=== PATIENT | male | born 1950 | race Caucasian/White ===

== ENCOUNTER → 2016-09-02 | Outpatient (CLI) | payer BC, OTHER ==
[~2016-09-02] MED LIST: ASPI81TA28 PO; ATOR-24 PO; BTP80 PO; CYAN10005 PO; FINA5TAB4 PO; FLUT0.15 INH; GLUCTAB7 PO; HYDR2.5C37 TOP; IBUP1TAB55 PO; ISOS60TA25 PO; LORA-741 PO; LPT40 PO; LSN40 PO; MDRDP21 PO; MELA1TAB5 PO; MULT-506 PO; NRN100 PO; OMEP20CA9 PO; PRAMCRE2 TOP; SOTA80TA PO; SPR25 PO; TAMS0.4C38 PO; TRAM-10 PO; ULT/50 PO; WARF-281 PO; WARF5TAB7 PO; ZLF/50 PO
== END | disposition home or self-care (01) ==
LOC: C.RDSM 08:00
PROVIDERS: ATTEND Physical Medicine & Rehabilitation Sports Medicine
DX: M25.521 Pain in right elbow (principal)

== ENCOUNTER 2016-10-30 19:11 | Emergency (ER) | payer BC, OTHER ==
[~2016-10-30] VITALS: Ht 185.4 cm; Wt 125.3 kg
[~2016-10-30 19:11] MED LIST changes: -ATOR-24 PO; -CYAN10005 PO; -GLUCTAB7 PO; -HYDR2.5C37 TOP; -IBUP1TAB55 PO; -MDRDP21 PO; -MULT-506 PO; -SOTA80TA PO; -TRAM-10 PO; -WARF5TAB7 PO
[2016-10-30 19:15] VITALS: TEMP 36.5; Ht 185.4 cm; Wt 125.3 kg
--- NOTE | 2016-10-30 20:24 | DIAGNOSTIC IMAGING REPORT ---
LEFT KNEE 3 VIEWS CLINICAL HISTORY: left, pain and locking pain COMPARISON: None. DISCUSSION: Moderate degenerative change all major joint compartments. Chondrocalcinosis. No acute bony abnormality. No significant joint effusion. There is no evidence for soft tissue swelling. IMPRESSION: Moderate degenerative change. Chondrocalcinosis. No acute process. Electronically signed by: Tomy Garcia M.D. 10/30/2016 8:23 PM Dictated Date/Time: 10/30/2016 8:22 PM
[2016-10-30] MEDS ORDERED: MDRDP21 PO (20:49)
[2016-10-30] MEDS ORDERED: TRAM-10 PO (21:09)
--- NOTE | 2016-10-30 21:10 | EMERGENCY ROOM VISIT NOTE ---
ED Visit Note First contact with patient: 19:34 CHIEF COMPLAINT: Left knee pain and locking today HISTORY OF PRESENT ILLNESS: Patient is a 66-year-old white male who presents the emergency department for evaluation of left knee pain that started this morning. He has a remote history of a knee arthroscopy, he is not sure which knee. He states that he fell landing on the flexed knee while walking his dog about 4 days ago, but did not note any left knee discomfort. Today, he has noted some discomfort in the anterior aspect of the knee, and notes a locking sensation particularly when he tries to rotate or turn. He applied a neoprene sleeve, and applied ice to the knee. He is able to bear weight, but it is slightly painful. 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 He is chronically anticoagulated on warfarin for a history of atrial fibrillation/ atrial flutter and actually has a cardioversion scheduled for the . REVIEW OF SYSTEMS: Review of systems as per HPI. All other systems reviewed were negative. 10 systems reviewed. PMH: Electronic medical records are reviewed and summarized as above/below. See Problem List. SOCIAL HISTORY: Patient lives at home. Employed. He is not a smoker. PHYSICAL EXAM: Vital Signs: Reviewed Nurse's notes. MENTAL STATUS: Patient is a pleasant 66-year-old white male who is awake and alert and in no acute distress laying on the gurney. KNEE: Examination of the left knee shows slight prepatellar soft tissue swelling. No ecchymosis, abrasions or outward signs of trauma. No knee joint effusion is palpable. He has slight discomfort to palpation over the patella and over the patellar tendon. No lateral joint line discomfort, pain over the medial joint line. He has slight crepitus with range of motion, but flexion and extension are full. No gross ligamentous instability is appreciated. The patient walks with an antalgic gait. EMERGENCY DEPARTMENT COURSE: X-ray of the left knee notes moderate degenerative changes and chondrocalcinosis. X-ray findings were reviewed with the patient. Conservative care measures were discussed. He is established with [facility]. He has used tramadol in the past and was encouraged to use this. NSAIDs were discussed, but I advised he should use these sparingly due to his warfarin therapy. He questions whether he could he received a cortisone injection here in the emergency department. I discussed that this would be better performed under the by orthopedic surgery to minimize risks of adverse outcome or complications. He expressed understanding of this. Differential diagnoses include fracture, sprain, contusion, meniscal tear, ligamentous injury , exacerbation of chronic DJD, among others. The patient was given a tramadol home pack and a small prescription. He declined a knee immobilizer. LEFT KNEE 3 VIEWS CLINICAL HISTORY: left, pain and locking pain COMPARISON: None. DISCUSSION: Moderate degenerative change all major joint compartments. Chondrocalcinosis. No acute bony abnormality. No significant joint effusion. There is no evidence for soft tissue swelling. IMPRESSION: Moderate degenerative change. Chondrocalcinosis. No acute process. Problem List Medical Problems: (1) Anxiety Status: Chronic (2) Atrial fibrillation Status: Chronic (3) CAD (coronary artery disease) Status: Chronic (4) Depression Status: Chronic (5) Diabetes mellitus type II, controlled Status: Chronic (6) Dyslipidemia Status: Chronic (7) GERD (gastroesophageal reflux disease) Status: Chronic (8) HTN (hypertension) Status: Chronic Surgical Problems: (1) H/O cataract removal with insertion of prosthetic lens Status: Resolved (2) H/O hernia repair Status: Resolved (3) S/P left knee arthroscopy Status: Resolved (4) S/P nasal septoplasty Status: Resolved Current/Historical Medications Scheduled Aspirin (Aspirin Ec), 81 MG PO DAILY Atorvastatin (Atorvastatin Calcium), 40 MG PO QPM Finasteride (Proscar), 5 MG PO DAILY Fluticasone Propionate (Nasal) (Flonase Allergy Relief), 2 SPRAYS INH DAILY Isosorbide Mononitrate Ext Rel (Imdur Ext Rel), 60 MG PO QPM Lisinopril (Lisinopril), 40 MG PO DAILY Methylprednisolone (Methylprednisolone Dose P), 1 DOSE PO DIRECTED Omeprazole (Prilosec), 20 MG PO QPM Agglssawn-Anmrlgvdonrip-Pqugee (Preparation H), 1 APPLN TOP UD Sertraline HCl (Sertraline HCl), 50 MG PO DAILY Sotalol HCl (Sotalol HCl), 80 MG PO BID Spironolactone (Spironolactone), 50 MG PO DAILY Tamsulosin Hcl (Flomax), 1 CAP PO DAILY Warfarin Sodium (Warfarin Sodium), 10 MG PO 5XWK Warfarin Sodium (Warfarin Sodium), 15 MG PO DIRECTED Scheduled PRN Lorazepam (Ativan), 0.5 MG PO HS PRN for Anxiety Melatonin (Kp Melatonin), 1 TAB PO HS PRN for Insomnia Tramadol (Ultram), 1-2 TAB PO Q4H PRN for Pain Tramadol Hcl (Ultram), 50 MG PO Q6HR PRN for Pain Allergies Coded Allergies: No Known Allergies (Unverified , 10/30/16) Vital Signs Date Time Temp Pulse Resp B/P Pulse Ox O2 Delivery O2 Flow Rate FiO2 10/30/16 21:22 76 20 145/80 99 10/30/16 19:15 36.5 130 20 108/78 95 Room Air Medications Administered Medications (Trade) Dose Ordered Sig/Pia Route Start Time Stop Time Status Last Admin Dose Admin Tramadol HCl (Ultram Home Pack) 1 homepack UD ONCE PO 10/30/16 21:15 10/30/16 21:16 DC 10/30/16 21:15 1 HOMEPACK Departure Information Impression Primary Impression: Left knee pain Prescriptions Tramadol (Ultram) 50 Mg Tab 1-2 TAB PO Q4H Y for Pain, #20 TAB For Initial Treatment Prov: Clara Pond PA 10/30/16 Referrals Deangelo Bashir MD (PCP) Patient Instructions My [facility] Additional Instructions Tramadol (Ultram) 50mg: Take 1-2 pills every four hours for breakthrough pain. Avoid alcohol, operating machinery or dangerous equipment, working on ladders or roofs, DRIVING, or situations where being under the influence may be dangerous. It is recommended to use an [id number] stool softener such as Colace, 100mg twice daily while taking this medication to avoid constipation. Acetaminophen(Tylenol) may be used for fever or pain. Use 1000mg every six hours as needed. Avoid using more than 3000mg in a 24 hour period. This medication can be taken if you need to drive, work, or perform activities which may be dangerous when taking narcotic pain medication. Ice compresses for 20 minutes at a time four times daily for 2-3 days. Rest and elevate your injury. Continue current medications. Return to the ER immediately for any numbness, tingling, severe pain, extreme swelling in the extremity or as needed. Call [facility] on Tuesday to arrange follow up for your injury. Problem Qualifiers Primary Impression: Left knee pain Chronicity: acute Qualified Codes: M25.562 - Pain in left knee
[2016-10-30] MEDS ORDERED: TRAMADOL HCL 50 MG HOME PACK PO ONE (21:15)
[2016-10-30 21:22] VITALS: BP 145/80; PULSE 76; O2SAT 99
[2016-11-02] MEDS ORDERED: IBUP1TAB55 PO ×2 (07:30)
[2016-11-02] MEDS ORDERED: HYDR2.5C37 TOP ×2 (07:30)
[2016-11-02] MEDS ORDERED: ATOR-24 PO ×2 (07:30)
[2017-03-09] MEDS ORDERED: GLUCTAB7 PO (12:26)
[2017-03-09] MEDS ORDERED: MULT-506 PO (12:26)
[2017-03-09] MEDS ORDERED: WARF5TAB7 PO (12:26)
[2017-03-09] MEDS ORDERED: SOTA80TA PO (12:26)
[2017-03-09] MEDS ORDERED: CYAN10005 PO (12:26)
[2017-03-17] MEDS ORDERED: TRAM-10 PO (11:18)
== END 2016-10-30 21:24 | disposition home or self-care (01) ==
LOC: C.EDB 19:12 → C.EDD 21:24
DX: M25.562 Pain in left knee (principal); F41.9 Anxiety disorder, unspecified; I48.91 Unspecified atrial fibrillation; I25.10 Atherosclerotic heart disease of native coronary artery without angina pectoris; E11.9 Type 2 diabetes mellitus without complications; E78.5 Hyperlipidemia, unspecified; K21.9 Gastro-esophageal reflux disease without esophagitis; I10 Essential (primary) hypertension; Z79.82 Long term (current) use of aspirin; Z79.01 Long term (current) use of anticoagulants

== ENCOUNTER → 2016-11-01 | Outpatient (CLI) | payer BC, OTHER ==
[~2016-11-01] MED LIST changes: +ATOR-24 PO; +CYAN10005 PO; +GLUCTAB7 PO; +HYDR2.5C37 TOP; +IBUP1TAB55 PO; +MDRDP21 PO; +MULT-506 PO; +SOTA80TA PO; +TRAM-10 PO; +WARF5TAB7 PO
== END | disposition home or self-care (01) ==
LOC: C.RDSM 11:25
PROVIDERS: ATTEND Physical Medicine & Rehabilitation Sports Medicine
DX: M25.562 Pain in left knee (principal)

== ENCOUNTER → 2016-11-02 | Day surgery (SDC) | payer BC, OTHER ==
[~2016-11-02] VITALS: Ht 185.4 cm; Wt 125.0 kg
[2016-11-02] VITALS (8 sets, daily range): BP systolic 92–126; BP diastolic 69–95; PULSE 62–122; TEMP 36.4; O2SAT 93–97; Ht 185.4 cm; Wt 125.0 kg
[~2016-11-02] MED LIST changes: +PROPOFOL IV EMULSION 10 MG/ML 20 ML VIAL IV ONE
--- NOTE | 2016-11-02 07:25 | History & Physical Bridge Note ---
H&P Re-Evaluation Bridge Note: I have examined the patient, reviewed the History & Physical recently performed by Marcus Alonzo PA-C of our practice and in the interval since the performance of the History & Physical I have noted the following changes of clinical significance: No changes noted. Recent INR levels were reviewed and were at goal.
--- NOTE | 2016-11-02 07:44 | Anesthesiology Progress Note ---
Anesthesia Post Op Note Date & Time Nov 02, 2016 at 07:44 Vital Signs Pain Intensity: 0 Vital Signs Past 12 Hours Date Time Temp Pulse Resp B/P Pulse Ox O2 Delivery O2 Flow Rate FiO2 11/02/16 07:34 115 16 115/92 97 Nasal Cannula 6 11/02/16 07:18 36.4 122 16 126/95 93 Room Air Notes Mental Status: alert / awake / arousable, participated in evaluation Pt Amnestic to Procedure: Yes Nausea / Vomiting: adequately controlled Pain: adequately controlled Airway Patency, RR, SpO2: stable & adequate BP & HR: stable & adequate Hydration State: stable & adequate Anesthetic Complications: no major complications apparent
--- NOTE | 2016-11-02 07:53 | Cardiology Procedure Brief Nt ---
Preliminary Cardiology Note Procedure Date Nov 02, 2016. Pre-Procedure Diagnosis Symptomatic atrial fibrillation Post-Procedure Diagnosis successful conversion to SB Procedure(s) Performed [facility] Archives Technician Justine Chirinos DO Associate Professor Of Literacy(s) not applicable Estimated Blood Loss none Preliminary Findings Patient received one dose of 200 J of biphasic synchronized energy with successful reversion to SB. Recommendations Continue home dose of sotalol and coumadin. Specimens none Anesthesia propofol 90 mg Complication(s) None Disposition Recovery in cardiac laborer construction or leak gang suite.
--- NOTE | 2016-11-02 07:59 | Discharge Instructions ---
Discharge Instructions Procedure Procedure Date: Nov 02, 2016. Reason for Visit: symptomatic atrial fibrillation, outpatient cardioversion Discharge Discharge Date: Nov 02, 2016. Discharge Diagnosis: successful conversion to sinus rhythm. Last Recorded Wt (Kilograms): 125 Anesthesia Post Anesthesia Instructions: If you have had General Anesthesia or IV Sedation: * Do not drive today. * Resume driving when surgeon permits. * Do not make important decisions or sign legal documents today. * For nausea and vomiting use only clear liquids such as: tea, soda, bouillon until nausea subsides, then gradually increase diet as tolerated. * If you have any concerns or questions, call your surgeon's office. If physician is unavailable and it is an emergency, call 911 or go to the nearest emergency room. Instructions Activity Recommendations: limitations as noted below Return to School/Work: with the following limitations Recommended Home Diet: resume previous diet Allergies: Coded Allergies: No Known Allergies (Unverified , 10/30/16) Follow Up Additional Instructions: ACTIVITY RECOMMENDATIONS: Resume activities as tolerated with no limitations unless specified. _x_ No lifting over _10 _ pounds for 24 hours. _x_ Do not engage in vigorous exercise, sexual activity, or sports for 24 hours. _x_ Do not drive or operate any motorized equipment for 24 hours. _x_ You may return to work/school tomorrow. SPECIAL CARE: If you experience coughing up or vomiting of blood, contact _Dr Chirinos, [phone] Follow-up with: follow up with Dr Chirinos and coumadin clinic [facility] Recommendations: Call your doctor if: * Temperature above 101 degrees * Pain not relieved by pain medicine ordered * There is increased drainage or redness from any incision * You have any unanswered questions or concerns. Your Doctors Instructions noted above were prepared by provider Jerman Chirinos. Patient Signature Section: Patient Instructions Signature Page Dariusz Larkin Patient (or Guardian) Signature/Date: I have read and understand the instructions given to me by my caregivers. Caregiver/RN/Doctor Signature/Date: The above-named patient and/or guardian has received patient instructions on this date. + Original Patient Signature Page (only) stays with chart. Please make copy for patient.
--- NOTE | 2016-11-02 08:47 | CARDIOVERSION ---
DATE OF OPERATION: 11/02/2016 PREPROCEDURE DIAGNOSIS: Symptomatic atrial fibrillation. POSTPROCEDURE DIAGNOSIS: Successful conversion to sinus bradycardia. PROCEDURE PERFORMED: Direct current cardioversion. ED CASE MANAGER: Jerman Chirinos DO DESCRIPTION OF PROCEDURE: After informed consent was obtained and time out was performed the patient was sedated with the assistance of Dr. Harrell of anesthesia receiving a total of 90 mg of propofol. The patient then received 1 dose of 200 joules of biphasic synchronized with successful conversion from atrial fibrillation 124 beats per minute to sinus bradycardia 55 beats per minute. The patient vital signs remained stable throughout the procedure. There were no complications. DISPOSITION: The patient is to recover in the cardiac catheterization suite and then return to home. RECOMMENDATIONS: He is to continue his prior home dose of sotalol and Coumadin. He is to follow with the anticoagulation clinic as previous scheduled. I attest to the content of the Intraoperative Record and any orders documented therein. Any exceptions are noted below. MTDD
--- NOTE | 2016-11-04 11:58 | CARDIOVERSION ---
DATE OF OPERATION: 11/02/2016 DIRECT CURRENT CARDIOVERSION NOTE PREPROCEDURE DIAGNOSIS: Symptomatic atrial fibrillation. POST PROCEDURE DIAGNOSIS: Successful conversion to sinus bradycardia. PROCEDURE PERFORMED: Direct current cardioversion. OUTBOUND SALES PROFESSIONAL: Jerman Chirinos D.O. ASSISTANTS: Not applicable. DESCRIPTION OF PROCEDURE: After informed consent was obtained and a time out was performed, the patient was sedated with the assistance of Dr. Harrell of anesthesia receiving a total of 200 joules of biphasic synchronized energy with successful conversion to sinus bradycardia. RECOMMENDATIONS: The patient is to continue his home dose of sotalol and Coumadin. ANESTHESIA: Propofol 90 mg IV. COMPLICATIONS: None. DISPOSITION: The patient is to recover in the cardiac catheterization laboratory suite and then be discharged to home with outpatient followup planned with our office as well as the Coumadin Clinic at [facility]. I attest to the content of the Intraoperative Record and any orders documented therein. Any exceptions are noted below. [email or web address]
== END | disposition home or self-care (01) ==
LOC: C.CATH 06:19
PROVIDERS: ATTEND Specialist
DX: I48.91 Unspecified atrial fibrillation (principal); I25.10 Atherosclerotic heart disease of native coronary artery without angina pectoris; E78.5 Hyperlipidemia, unspecified; E11.42 Type 2 diabetes mellitus with diabetic polyneuropathy; G47.30 Sleep apnea, unspecified; K21.9 Gastro-esophageal reflux disease without esophagitis; F41.8 Other specified anxiety disorders; E03.9 Hypothyroidism, unspecified; E66.9 Obesity, unspecified; Z79.01 Long term (current) use of anticoagulants; Z83.3 Family history of diabetes mellitus; Z82.49 Family history of ischemic heart disease and other diseases of the circulatory system; Z79.899 Other long term (current) drug therapy

== ENCOUNTER → 2017-03-08 | Outpatient (CLI) | payer BC, OTHER ==
[~2017-03-08] MED LIST changes: -LPT40 PO; -MDRDP21 PO; -NRN100 PO; -PROPOFOL IV EMULSION 10 MG/ML 20 ML VIAL IV ONE
== END | disposition home or self-care (01) ==
LOC: C.RDSM 12:55
PROVIDERS: ATTEND Physical Medicine & Rehabilitation Sports Medicine
DX: G56.01 Carpal tunnel syndrome, right upper limb (principal)

== ENCOUNTER → 2017-03-17 | Day surgery (SDC) | payer BC, OTHER ==
[2017-03-09 12:29] VITALS: Ht 185.4 cm; Wt 127.3 kg
[~2017-03-17] VITALS: Ht 185.4 cm; Wt 127.3 kg
[~2017-03-17] MED LIST changes: +ATROPINE SULFATE 0.1 MG/ML 5ML SYR IV PRN; -BTP80 PO; +BUPIVACAINE/EPINEPHRINE 0.5% MPF 1:200,000 10 ML VIAL ONE; +CEFAZOLIN 3000 MG/65 ML D5W IV SCH; +EpHEDrine SULFATE INJ 50 MG/ML AMP IV PRN; +FENTANYL CITRATE INJ 50 MCG/1 ML 2 ML VIAL ONE; +HYDROCODONE/ACETAMOPHEN 5/325MG TAB PO PRN; +LACTATED RINGER'S 1000ML 1,000 ML IV SCH; +LIDOCAINE HCL 2% 2 ML VIAL (20MG/ML) ONE; +LIDOCAINE/EPINEPHRINE 1% INJ 50 ML VIAL ONE; +MIDAZOLAM HCL 1 MG/ML 2ML VIAL ONE; +ONDANSETRON INJ 2 MG/ML 2 ML VIAL IV PRN; +ONDANSETRON INJ 2 MG/ML 2 ML VIAL ONE; +PROPOFOL IV EMULSION 10 MG/ML 20 ML VIAL IV ONE; +SODIUM CHLORIDE 0.9% 1000ML 1,000 ML IV SCH; +TRAMADOL HCL 50 MG TAB PO PRN
[2017-03-17 09:27] LABS: PROTHROMBIN TIME (PATIENT) 11.1 SECONDS (9.0-12.0)
--- NOTE | 2017-03-17 09:32 | History & Physical Bridge Note ---
H&P Re-Evaluation Bridge Note: I have examined the patient, reviewed the History & Physical and in the interval since the performance of the History & Physical I have noted the following changes of clinical significance: No changes noted
[2017-03-17 11:20] VITALS: TEMP 36.4
--- NOTE | 2017-03-17 11:24 | [facility] Operative Report ---
Operative Report Operative Date Mar 17, 2017. Pre-Operative Diagnosis Right Carpal Tunnel Syndrome, Right Middle Trigger Finger Post-Operative Diagnosis Same Procedure(s) Performed Right Carpal Tunnel Release And Middle Finger Trigger Release Surgeon Dr. Sage Figueredo Balance Truer Surgeon(s) Cate Rivas PA-C Estimated Blood Loss 0 Findings Right CTS, Right middle finger trigger Specimens None Drains NOne Anesthesia IV Sedation with local anesthesia Complication(s) None Disposition Recovery Room / PACU (stable) Indications Patient is a 66 year old male with complaints of right hand paresthesias and right locking of middle finger. Failed conservative treatment. X-rays and EMG/ NCS obtained. Found to have no bony abnormality. EMG found median nerve entrapment. Surgical intervention discussed, he agreed to proceed. Risks/ complications discussed, informed consent obtained. Description of Procedure Patient was taken to the operating room, given IV sedation with local anesthetic. Time out performed. He was given IV Ancef for surgical prophylaxis. He was prepped and draped in routine sterile fashion. I was present the entire case, please see Dr. Figueredo's operative report for further detail. Patient was awakened and taken to the recovery room in stable condition. I attest to the content of the Intraoperative Record and any orders documented therein. Any exceptions are noted below.
--- NOTE | 2017-03-17 11:26 | Discharge Instructions-SurgCtr ---
Discharge Instructions Date of Service Mar 17, 2017. Visit Reason for Visit: Right Cts, Right Middle Trigger Finger Discharge Discharge Diagnosis / Problem: right carpal tunnel syndrome, right middle finger trigger digit Discharge Goals Goal(s): Decrease discomfort, Improve function, Increase independence Medications Stopped Medications Name(s): COUMADIN STOPPED ON TUESDAY Restart Stopped Medication(s): Resume regular Coumadin dose this evening at your regularly scheduled time. Activity Recommendations Activity Limitations: per Instructions/Follow-up section Anesthesia . Post Anesthesia Instructions: If you have had General Anesthesia or IV Sedation: * Do not drive today. * Resume driving when surgeon permits. * Do not make important decisions or sign legal documents today. * Call surgeon for: 1. Temperature elevations greater than 101 degrees F. 2. Uncontrollable pain. 3. Excessive bleeding. 4. Persistent nausea and vomiting. 5. Medication intolerance (nausea, vomiting or rash). * For nausea and vomiting use only clear liquids such as: tea, soda, bouillon until nausea subsides, then gradually increase diet as tolerated. * If you have any concerns or questions, call your surgeon's office. If physician is unavailable and it is an emergency, call 911 or go to the nearest emergency room. . Instructions / Follow-Up Instructions / Follow-Up The following are instructions to follow after minor hand surgery. ACTIVITY RECOMMENDATIONS: * Minimize activity until your first visit after surgery. * No excessive walking, jogging, sports or laboring. * Return to activity is individualized. Most patients are able to return to everyday activities within 2 weeks. * Return to sports or intensive labor usually occurs at 1-2 months. * DRIVING: Driving may be resumed when you feel you have adequate pain control and use of the hand. * BATHING: You may shower or sponge-bathe immediately after surgery. The dressing will need to be covered with a plastic bag or plastic wrap until the dressing is changed on the fourth or fifth day after surgery. Once the dressing has been changed on the fourth or fifth day after surgery, you may shower and get the incision wet. * Wash with regular soap and water. * Do not bathe (submerge the incision), soak, swim or use a hot tub until the incision is completely healed over with normal skin and the doctor has given the OK to proceed. * There is no need to apply any ointments, powders or salves to your incision. * Do not apply alcohol or hydrogen peroxide directly to the incision. Diluted peroxide (50:50 mixture with sterile saline) may be used to clean dried blood from around the incision area. WORK/SCHOOL: * You may return to sedentary work or school when you are feeling comfortable. This is usually 3-7 days after surgery. * Expect increased discomfort with increased activity. Continue to elevate and ice the hand as much as possible. DIET: * Resume previous diet. MEDICATIONS: * You will have a prescription for pain medication and an anti-inflammatory medication after surgery. Use the pain pills for severe pain and the anti-inflammatory for less severe pain. * Once the pain pills have run out, try to use the anti-inflammatory. If this is not effective then contact the office for assistance. * The pain medication may cause nausea, constipation and sleepiness. You should see how they affect you before driving or similar activity. * The anti-inflammatory may cause stomach upset and bleeding. If this occurs, let your doctor know immediately . * Some patients may need blood clot prevention. This can be done with either a pill or a simple shot. Your doctor will advise you on when to begin these medications and how to take them. * Do not take aspirin or other anti-inflammatory products (i.e. Advil or Aleve ) if taking blood thinner medication. * Take a stool softener like Colace or a stimulant like Senokot to prevent constipation. SPECIAL CARE INSTRUCTIONS: ICE: * Do not apply ice directly to the skin. * Use a thin dressing or stockinet between the skin and ice bag. The dressing in place after surgery will suffice. * Apply ice for 20-30 minutes and repeat every 2-4 hours. This is especially important for the first 3-7 days after surgery. * Once the pain improves, use ice as needed. ELEVATION: * Keep your hand elevated at or above the level of your heart as much as possible. * Expect some increased discomfort and swelling if you allow your hand to hang down for any length of time. DRESSING: * Your dressing will be changed 4-5 days after surgery by the physical therapist or physician's human resource assistant. Leave your dressing intact until this time. * You may then change your dressing daily with clean dry gauze or Band-aids and a soft wrap or stockinet. * Always wash your hands prior to touching the incision area. * Once the stitches are removed, you may leave the wound open to air or cover with a thin bandage. * There is no need to apply any ointments, powders or salves to your incision. * Expect some bloody drainage for the first few days after surgery. * Leave the tape strips in place (if present) for 5-7 days. * The initial dressing after surgery may become soaked with blood or fluid which is normal. You may reinforce your dressing with clean, dry gauze as needed. BRACE: * Bracing is generally not needed after routine hand surgery. THERAPY: * Physical therapy may be prescribed after your surgery. * For carpal tunnel and trigger digit surgery you may begin moving your fingers and wrist immediately after surgery as tolerated. * Be careful to not overuse. * Once the sutures are removed, further range of motion exercises can be performed. * Hand incisions may be very sensitive for a few months after surgery so avoid excessive pressure on the incision. If necessary, use a padded weightlifters' glove. * You may massage the incision with skin cream to make it less sensitive and reduce scarring. * Hand strength usually returns with normal use. * If needed, squeezing a soft sponge or Play-dough may help. * Your doctor will recommend physical therapy if necessary. PROBLEMS/QUESTIONS: * If you have any problems such as severe pain, numbness, tingling or high fevers or if you have any questions, please contact the office at [phone]. * It is not uncommon to have some numbness and tingling after the surgery especially if you have had a nerve block done. This should gradually improve over the first 1- 2 days. If this persists longer or worsens then contact the office. FOLLOW UP VISIT: * If not already scheduled, please call the office at to schedule follow-up appointments for approximately 10 days, 6 weeks and 3 months after surgery. * You have a follow-up appointment or dressing change at [facility] physical therapy on 03/21/17 at 10:00 a.m. * You have a follow-up appointment with Dr. Figueredo on 03/30/17 at 1:00 p.m. Diet Recommendations Home Diet: no limitations, resume previous diet Pending Studies Studies pending at discharge: no Medical Emergencies . Who to Call and When: Medical Emergencies: If at any time you feel your situation is an emergency, please call 911 immediately. . Non-Emergent Contact Non-Emergency issues call your: Surgeon Call Non-Emergent contact if: temperature is above 101, your pain is not controlled, wound has increased drainage, wound has increased redness, wound has increased pain, you have any medication questions . . "Provider Documentation" section prepared by Cate Rivas. . [place] Drug Monitoring Program Search Results: patient reviewed within database, no issues identified
--- NOTE | 2017-03-17 11:29 | [facility] Operative Report ---
Operative Report Operative Date Mar 17, 2017. Pre-Operative Diagnosis Right Carpal Tunnel Syndrome, Right Middle Trigger Finger Post-Operative Diagnosis Same Procedure(s) Performed Right Carpal Tunnel Release And Middle Finger Trigger Release Surgeon Dr. Efraín Figueredo Hand Plate Stacker Surgeon(s) Justine Rivas PA-C Estimated Blood Loss 0 Findings Clicking of right middle finger trigger digit with tenosynovitis Specimens None Drains none Anesthesia local with IV sedation Complication(s) None Disposition Recovery Room / PACU Implants None Indications Patient's a 66-year-old male with a right middle finger trigger digit. He also has some stiffness and pain of the involved digit and surrounding area. He has clinical and electrodiagnostic findings consistent with carpal tunnel. He is taken to surgery for addressing the after mentioned problems. The patient is on long-term anticoagulation for atrial fibrillation. 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 The Coumadin was stopped preoperatively. The INR today is 1.0. Coumadin will be restarted postoperatively. He will follow up with the Coumadin clinic. Description of Procedure Informed consent was obtained. The patient was identified as Dariusz rodriguez. He identified the operative site as the right hand middle finger and the right carpal tunnel. I marked the separately with my initials. Preoperative surgical timeout was performed. He was taken to the operating room positioned supine on the stretcher. A preoperative dose of IV antibiotics was given. A tourniquet was applied to the right upper arm. The extremity was prepped and draped in the usual sterile fashion. DVT prophylaxis is not indicated. The examination showed clicking with flexion of the middle finger. He had a trace loss of middle finger extension which I gently manipulated into full extension. 1% lidocaine and half percent Marcaine both containing epinephrine were injected into both areas for a local anesthetic. Intravenous sedation was given. The limb was exsanguinated with the Esmarch. Tourniquet inflated to 225 mmHg. A transverse incision was made using the distal palmar crease on the long finger. Once dissection performed down in the midline until the tendon sheath was identified. The radial neurovascular bundle was identified and protected with a retractor. The tendon sheath was located slightly distal under the incision. I extended this in a zigzag fashion distally perpendicular to the original oblique incision. Again blunt dissection was utilized in the midline. The neurovascular bundle was identified and protected on the radial side. The tendon sheath was then more easily identified. The A1 carrie was then released under direct visualization. There was tenosynovitis noted in this area of the superficialis tendon which was also debrided. There were no cysts. There is no nodule the tendon. The clicking was completely eliminated. The wound was irrigated with sterile saline. The incision was then closed using 4- 0 nylon sutures. Attention was turned to the carpal tunnel where a longitudinal incision was made beginning at Aguirre's cardinal line. This incision and just short of the main distal transverse wrist crease. The incision was made in line the third webspace. Blunt dissection was performed down to subcutaneous tissues and superficial fascia. The transverse carpal ligament was identified. The distal extent was identified. The transverse carpal ligament was released up into the distal forearm fascia under direct visualization. A scalpel and tenotomy scissors were utilized. The transverse carpal ligament was noted to be very thick and also very tight. The tendons the tenosynovium were normal. There appeared to be some flattening of the median nerve but otherwise it was unremarkable. A good decompression was obtained both proximally and distally. The wound was irrigated and then closed with 4-0 nylon horizontal mattress stitches in an interrupted fashion. A soft sterile dressing was applied. The tourniquet was let down after approximately 25 minutes of inflation. The patient was awakened from anesthesia without difficulty. He was taken to the recovery room in stable condition. There were no specimens or complications. Counts are correct in the case. Blood loss was minimal. At the end of the operation spoke to his friend and informed him of my findings. Detailed postoperative instructions were given. He'll be rehabilitated according to the trigger finger and carpal tunnel protocol. He'll be in for physical therapy next week. I attest to the content of the Intraoperative Record and any orders documented therein. Any exceptions are noted below.
--- NOTE | 2017-03-17 11:40 | Anesthesia Progress Nt - [facility] ---
Anesthesia Post Op Note Date & Time Mar 17, 2017 at 11:40 Vital Signs Pain Intensity: 0 Vital Signs Past 12 Hours Date Time Temp Pulse Resp B/P (MAP) Pulse Ox O2 Delivery O2 Flow Rate FiO2 03/17/17 11:20 36.4 50 16 124/72 (89) 93 Room Air 03/17/17 08:56 36.9 49 22 166/99 (121) 95 Room Air Notes Mental Status: alert / awake / arousable, participated in evaluation Pt Amnestic to Procedure: Yes Nausea / Vomiting: adequately controlled Pain: adequately controlled Airway Patency, RR, SpO2: stable & adequate BP & HR: stable & adequate Hydration State: stable & adequate Anesthetic Complications: no major complications apparent
[2017-03-17 11:41] VITALS: BP 128/82; PULSE 50; O2SAT 97
== END | disposition home or self-care (01) ==
LOC: X.SURG 08:29
PROVIDERS: ATTEND Physical Medicine & Rehabilitation Sports Medicine
DX: G56.01 Carpal tunnel syndrome, right upper limb (principal); M65.331 Trigger finger, right middle finger; I48.91 Unspecified atrial fibrillation; I10 Essential (primary) hypertension; E78.00 Pure hypercholesterolemia, unspecified; E11.9 Type 2 diabetes mellitus without complications; G47.30 Sleep apnea, unspecified; K21.9 Gastro-esophageal reflux disease without esophagitis; F32.9 Major depressive disorder, single episode, unspecified; N40.0 Benign prostatic hyperplasia without lower urinary tract symptoms; E66.9 Obesity, unspecified; Z79.01 Long term (current) use of anticoagulants; Z79.899 Other long term (current) drug therapy

== ENCOUNTER → 2017-05-27 | Outpatient (CLI) | payer BC ==
[~2017-05-27] VITALS: Ht 185.4 cm; Wt 131.8 kg
[~2017-05-27] MED LIST changes: -ATROPINE SULFATE 0.1 MG/ML 5ML SYR IV PRN; -BUPIVACAINE/EPINEPHRINE 0.5% MPF 1:200,000 10 ML VIAL ONE; -CEFAZOLIN 3000 MG/65 ML D5W IV SCH; -EpHEDrine SULFATE INJ 50 MG/ML AMP IV PRN; -FENTANYL CITRATE INJ 50 MCG/1 ML 2 ML VIAL ONE; -HYDROCODONE/ACETAMOPHEN 5/325MG TAB PO PRN; -LACTATED RINGER'S 1000ML 1,000 ML IV SCH; -LIDOCAINE HCL 2% 2 ML VIAL (20MG/ML) ONE; -LIDOCAINE/EPINEPHRINE 1% INJ 50 ML VIAL ONE; -MIDAZOLAM HCL 1 MG/ML 2ML VIAL ONE; -ONDANSETRON INJ 2 MG/ML 2 ML VIAL IV PRN; -ONDANSETRON INJ 2 MG/ML 2 ML VIAL ONE; -PROPOFOL IV EMULSION 10 MG/ML 20 ML VIAL IV ONE; -SODIUM CHLORIDE 0.9% 1000ML 1,000 ML IV SCH; -TRAMADOL HCL 50 MG TAB PO PRN
[2017-05-27 15:12] VITALS: BP 126/80; PULSE 66; Ht 185.4 cm; Wt 131.8 kg
== END | disposition home or self-care (01) ==
LOC: C.NEUR 14:47
PROVIDERS: ATTEND Internal Medicine Pulmonary Disease
DX: G47.30 Sleep apnea, unspecified (principal)

== ENCOUNTER → 2017-06-08 | Outpatient (CLI) | payer BC ==
--- NOTE | 2017-06-13 08:56 | POLYSOMNOGRAPH REPORT ---
CLINICAL DATA: A 66-year-old male with BMI of 38.32 diagnosed with sleep apnea 10 years ago in [place]. He had a difficult time tolerating CPAP and only used it for 2 years. He is suffering from recurrent symptoms of poor sleep quality, frequent awakenings and daytime fatigue. He also has symptoms of depression. On the evening of 06/08/2017, a home sleep apnea test was performed using a Credible type 3 monitor. RECORDING RESULTS: Total recording time was 10 hours. The patient's monitoring time and estimated sleep time was 6.5 hours. RESPIRATORY DATA: At least moderate sleep apnea was documented. The DIMAS was 17.5. There were 35 obstructive apneic episodes and 78 hypopneic episodes recorded. The longest respiratory event was 52 seconds. OXIMETRY DATA: Nocturnal hypoxemia was seen. Oxygen desiree was 81%. Mean saturation was 91%. Time below 89% was 21 minutes. HEART RATE DATA: Heart rates ranged from 36-45 beats per minute. SNORING DATA: Snoring was recorded throughout the night. METROLOGY TECHNICIAN'S COMMENTS: The patient did not have any difficulty with testing. The thermistor did not work well throughout the test. It was unclear whether it was properly placed. At times, it worked well and at other times, it was questionable. It is the feeling of the hemodialysis technician that the patient has sleep apnea but the actual DIMAS may be different due to the inaccuracy of the thermistor. IMPRESSION: Moderate sleep apnea/hypopnea with an DIMAS of 17.5 with nocturnal hypoxemia. RECOMMENDATIONS: The patient may benefit from a repeat sleep study with CPAP or use of an oral appliance. JACEY
== END | disposition home or self-care (01) ==
LOC: C.NEUR 08:20
PROVIDERS: ATTEND Internal Medicine Pulmonary Disease
DX: G47.30 Sleep apnea, unspecified (principal)

== ENCOUNTER 2021-10-20 16:15 | Inpatient (IN) ==
[2021-10-20] MEDS ORDERED: dilTIAZem HCl 5 MG/ML 5 ML VIAL IV STA (16:51)
[2021-10-20] MEDS ORDERED: SODIUM CHLORIDE 0.9% 250 ML IV ONE (16:51)
--- NOTE | 2021-10-20 16:53 | Emergency Department Note ---
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 Patient states he has had some issues with generalized weakness, states he has felt somewhat short of breath over the past week since he had a cardioversion performed on October 13 for atrial fibrillation. 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 On arrival he is conversational, he is saturating well on room air, blood pressure is stable, he is noted to be tachycardic at about 120. ROS: - Cardio: Tachycardia *10 point review systems was conducted and is otherwise negative unless stated above *Outpatient medications and allergy history reviewed PE: General: Alert, NAD HEENT: Normocephalic, atraumatic Eyes: Extraocular eye movement is intact, no scleral erythema Pulmonary: Clear to auscultation bilaterally, no wheezing Cardio: Regular Rhythm, tachycardic rate GI: Abdomen is soft, nontender : No suprapubic tenderness MSK: No evidence of trauma or malformation of the extremities, no edema Skin: No evidence of rash Neuro: Alert, no focal deficits Psychiatric: Cooperative specification writer: - An order was placed for continuous cardiac monitoring - Patient was noted to be in Regular rhythm with rate of 119 EKG: Rate: 119 Rhythm: Atrial flutter with 2-1 block Intervals: Within normal limits ST changes: No ST elevation Time: 1639 Medical Decision Making: The patient is a 71-year-old gentleman who presented to the emergency department with tachycardia from his PCPs office. Patient is noted to be in atrial flutter with a 2-1 block on EKG, he is otherwise in no acute distress, saturating well on room air, blood pressure stable, he denies any chest pain. IV was established, lab work obtained, patient was placed on a anchor operator, he is maintained a regular appearing rhythm with a rate of 119, consistent with likely atrial flutter. Lab work is largely unremarkable, no critical electrolyte abnormalities are noted, BNP is slightly elevated, troponin is negative x1. I discussed the above findings with on-call cardiology, Dr. Butterfield, patient did not convert following diltiazem bolus of 10 mg in addition to continuous diltiazem drip, patient was also given 5 of metoprolol IV without any response. His blood pressure remained stable, he remained saturating well on room air. Dr. Butterfield recommended at this time admission to the hospitalist service and maintaining the patient on a diltiazem drip to see if he converts given that he is otherwise hemodynamically stable. He has had recent cardioversions in the past therefore this is thought to be less helpful at this time as he has had limited response to this. Patient is in agreement to the above plan, I discussed the case with the on-call hospitalist for [facility], Dr. Mariela Troncoso, and the patient was admitted to a telemetry bed for further care. Critical care time: 35 minutes -Management of tachyarrhythmia requiring IV rate control medication drip/diltiazem drip, discussion with other physicians, arrangement of admission, interpretation of diagnostic studies Diagnosis: 1.Atrial flutter With 2-1 AV block 2.Sensation of palpitations 3.weakness 4.Tachycardia Disposition: ADMIT Tomy Sandy DO Emergency Medicine Past Med/Surg History Medical History (Updated 10/20/21 @ 19:32 by Tomy Sandy DO) Arthritis Atrial fibrillation BPH (benign prostatic hyperplasia) Coronary artery disease Depression Diabetes mellitus, type 2 Elevated prostate specific antigen (PSA) GERD (gastroesophageal reflux disease) History of cardioversion X 1 *4 YEARS AGO Hyperlipidemia Hypertension Myocardial infarction SILENT *8 YEARS AGO Neuropathy LOLA. FEET Sleep apnea NO DEVICE Spinal stenosis Surgical History H/O hernia repair History of cardiac cath MULT.>NO STENTS (LAST ONE 20 YEARS AGO) History of carpal tunnel release RT History of colonoscopy History of tooth extraction Hx of cataract surgery RT/LEFT Hx of knee surgery Hx of nasal septoplasty Family History Mother Diabetes Cardiac disorder AMD (age related macular degeneration) Cancer Hypertension Father Diabetes Cardiac disorder Parkinson's disease Sister Rheumatoid arthritis Other No family history of adverse response to anesthesia Social History Smoking Status: Never smoker Second Hand Exposure: No; Hx Alcohol Use: Yes Preferred Language: Romanian Orthodontic Treatment Coordinator Required: No Beliefs That Will Affect Care: Faith Faith Beliefs: 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) marital status: Single Current Living Situation: Alone Feels Safe at Home: Yes Assistive Devices: Hearing Aid - Bilateral Allergies Allergies Allergy/AdvReac Type Severity Reaction Status Date / Time walnut Allergy Intermediate MOUTH Verified 10/20/21 18:50 BURNING Home Meds Home Medications Medication Instructions Recorded Confirmed atorvastatin 40 mg tablet 40 mg PO HS 03/06/20 10/20/21 finasteride 5 mg tablet 5 mg PO DAILY 03/06/20 10/20/21 isosorbide mononitrate 60 mg 60 mg PO DAILY 03/06/20 10/20/21 tablet,extended release 24 hr lisinopril 40 mg tablet 40 mg PO DAILY 03/06/20 10/20/21 omeprazole 20 mg capsule,delayed 20 mg PO HS 03/06/20 10/20/21 release sertraline 100 mg tablet 100 mg PO DAILY 03/06/20 10/20/21 sotalol 80 mg tablet See Rx Instructions .ROUTE .COMPLEX 03/06/20 10/20/21 spironolactone 25 mg tablet 25 mg PO DAILY 03/06/20 10/20/21 tamsulosin 0.4 mg capsule 0.4 mg PO DAILY 03/06/20 10/20/21 warfarin 10 mg tablet See Rx Instructions .ROUTE .COMPLEX 03/06/20 10/20/21 aspirin 81 mg tablet,delayed 81 mg PO DAILY 06/02/20 10/20/21 release cyanocobalamin (vitamin B-12) 3,000 mcg PO DAILY 06/02/20 10/20/21 1,000 mcg tablet (Vitamin B-12) fluticasone propionate 50 2 spray INTRANASAL DAILY PRN 06/02/20 10/20/21 mcg/actuation nasal spray,suspension multivitamin 1 tab PO DAILY 06/02/20 10/20/21 diphenhydramine 25 1 tab PO HS PRN 10/12/21 10/20/21 mg-acetaminophen 500 mg tablet (Tylenol PM Extra Strength) glucosamine-chondroitin 250 mg-200 2 tab PO DAILY 10/12/21 10/20/21 mg tablet (Osteo Bi-Flex) metformin 500 mg tablet 2,000 mg PO QPM 10/12/21 10/20/21 Results & Data (ED) Vital Signs Vital Signs - 24 hr 10/20/21 16:16 10/20/21 16:18 10/20/21 16:57 Pulse Rate 119 H 119 H Pulse Rate [Right Finger] 119 H Pulse Rhythm Regular Pulse Rhythm [Right Finger] Regular Pulse Strength [Right Finger] Normal Respiratory Rate 19 20 18 Respiratory Effort / Characteristics Non-Labored Spontaneous Respiratory Depth Normal Respiratory Pattern Blood Pressure 117/87 Blood Pressure [Right Arm] 118/95 Blood Pressure Mean 97 Blood Pressure Mean [Right Arm] 102 Blood Pressure Position Sitting Blood Pressure Position [Right Arm] Lying Pulse Oximetry 94 91 94 Oxygen Delivery Method Room Air Room Air Room Air Sepsis Recent Fever Within 48 Hours No Sepsis New/Unexplained Change in Mental Status No Sepsis Action Taken by Nursing No Action Required 10/20/21 17:30 10/20/21 17:52 10/20/21 19:00 Pulse Rate 120 H Pulse Rate [Right Finger] 124 H 118 H Pulse Rhythm Pulse Rhythm [Right Finger] Regular Irregular Pulse Strength [Right Finger] Normal Normal Respiratory Rate 18 18 Respiratory Effort / Characteristics Non-Labored Spontaneous Non-Labored Spontaneous Respiratory Depth Normal Normal Respiratory Pattern Regular Regular Blood Pressure 144/89 H Blood Pressure [Right Arm] 144/89 H 130/105 H Blood Pressure Mean Blood Pressure Mean [Right Arm] 107 113 Blood Pressure Position Blood Pressure Position [Right Arm] Lying Pulse Oximetry 94 97 Oxygen Delivery Method Room Air Room Air Sepsis Recent Fever Within 48 Hours Sepsis New/Unexplained Change in Mental Status Sepsis Action Taken by Nursing Laboratory Data Result diagrams: 10/20/21 17:24 10/20/21 17:24 Lab Results 10/20/21 10/20/21 10/20/21 Range/Units 17:24 17:24 17:24 WBC 8.91 (4.8-10.8) K/uL RBC 4.56 L (4.7-6.1) M/uL Hgb 13.6 L (14.0-18.0) g/dL Hct 40.8 L (42-52) % MCV 89.5 (80-100) fL MCH 29.8 (25-34) pg MCHC 33.3 (32-36) g/dL RDW Std Deviation 48.2 H (36.4-46.3) fL RDW Coeff of Ziyad 14.8 H (11.5-14.5) % Plt Count 201 (130-400) K/uL MPV 10.7 H (7.4-10.4) fL Immature Gran % (Auto) 0.1 % Neut % (Auto) 66.4 % Lymph % (Auto) 23.7 % Gladwin % (Auto) 8.2 % Eos % (Auto) 1.2 % Baso % (Auto) 0.4 % Neut # (Auto) 5.91 (1.4-6.5) K/uL Lymph # (Auto) 2.11 (1.2-3.4) K/uL Gladwin # (Auto) 0.73 H (0.11-0.59) K/uL Eos # (Auto) 0.11 (0-0.5) K/uL Baso # (Auto) 0.04 (0-0.2) K/uL Immature Gran # (Auto) 0.01 (0.00-0.02) K/uL PT 23.8 H (9.0-12.0) Seconds INR 2.3 H (0.9-1.1) APTT 30.8 (21.0-31.0) Seconds PTT Ratio 1.1 Sodium 138 (136-145) mmol/L Potassium 4.3 (3.5-5.1) mmol/L Chloride 108 H (98-107) mmol/L Carbon Dioxide 24 (21-32) mmol/L Anion Gap 6 (3-11) BUN 17 (6-23) mg/dl Creatinine 0.78 (0.6-1.4) mg/dl Est Cr Clr Drug Dosing 122.0 ml/min Est GFR ( Amer) 104.5 ml/min Est GFR (Non-Af Amer) 90.2 ml/min BUN/Creatinine Ratio 21.8 H (10-20) Glucose 118 H (70-99(Fasting)) mg/dl Calcium 8.9 (8.5-10.1) mg/dl Total Bilirubin 0.8 (0.2-1.0) mg/dl AST 21 (13-39) U/L ALT 26 (7-52) U/L Alkaline Phosphatase 70 (34-104) U/L Troponin I 0.04 (0-0.04) ng/ml B-Natriuretic Peptide (0-100) pg/ml Total Protein 6.4 (6.0-8.3) gm/dl Albumin 3.8 (3.4-5.0) gm/dl Globulin 2.6 (2.5-4.0) gm/dl Albumin/Globulin Ratio 1.5 (0.9-2) Lipase 52 (11-82) U/L SARS-CoV-2, RNA, NAAT (NEGATIVE) 10/20/21 10/20/21 Range/Units 17:24 18:58 WBC (4.8-10.8) K/uL RBC (4.7-6.1) M/uL Hgb (14.0-18.0) g/dL Hct (42-52) % MCV (80-100) fL MCH (25-34) pg MCHC (32-36) g/dL RDW Std Deviation (36.4-46.3) fL RDW Coeff of Ziyad (11.5-14.5) % Plt Count (130-400) K/uL MPV (7.4-10.4) fL Immature Gran % (Auto) % Neut % (Auto) % Lymph % (Auto) % Gladwin % (Auto) % Eos % (Auto) % Baso % (Auto) % Neut # (Auto) (1.4-6.5) K/uL Lymph # (Auto) (1.2-3.4) K/uL Gladwin # (Auto) (0.11-0.59) K/uL Eos # (Auto) (0-0.5) K/uL Baso # (Auto) (0-0.2) K/uL Immature Gran # (Auto) (0.00-0.02) K/uL PT (9.0-12.0) Seconds INR (0.9-1.1) APTT (21.0-31.0) Seconds PTT Ratio Sodium (136-145) mmol/L Potassium (3.5-5.1) mmol/L Chloride (98-107) mmol/L Carbon Dioxide (21-32) mmol/L Anion Gap (3-11) BUN (6-23) mg/dl Creatinine (0.6-1.4) mg/dl Est Cr Clr Drug Dosing ml/min Est GFR ( Amer) ml/min Est GFR (Non-Af Amer) ml/min BUN/Creatinine Ratio (10-20) Glucose (70-99(Fasting)) mg/dl Calcium (8.5-10.1) mg/dl Total Bilirubin (0.2-1.0) mg/dl AST (13-39) U/L ALT (7-52) U/L Alkaline Phosphatase (34-104) U/L Troponin I (0-0.04) ng/ml B-Natriuretic Peptide 545 H (0-100) pg/ml Total Protein (6.0-8.3) gm/dl Albumin (3.4-5.0) gm/dl Globulin (2.5-4.0) gm/dl Albumin/Globulin Ratio (0.9-2) Lipase (11-82) U/L SARS-CoV-2, RNA, NAAT NEGATIVE (NEGATIVE) Administered Medications Diltiazem HCl 125 mg/ Dextrose 125 mls @ 5 mls/hr IV .Q24H [facility]; Protocol Stop: 11/19/21 17:44 Last Admin: 10/20/21 17:52 Dose: 10 mg/hr, 10 mls/hr Documented by: [id number] Cosigned by: [id number] Discontinued Medications Diltiazem HCl (Diltiazem Hcl 5 Mg/Ml 5 Ml Vial) 10 mg IV NOW STA Stop: 10/20/21 16:52 Last Admin: 10/20/21 17:29 Dose: 10 mg Documented by: [id number] Cosigned by: [id number] Sodium Chloride (Nss) 250 mls @ 999 mls/hr IV .Q16M ONE Stop: 10/20/21 17:06 Last Admin: 10/20/21 17:34 Dose: 999 mls/hr Documented by: [id number] Metoprolol Tartrate (Metoprolol Tartrate 1 Mg/Ml Vial) 5 mg IV NOW STA; Protocol Stop: 10/20/21 17:41 Last Admin: 10/20/21 17:52 Dose: 5 mg Documented by: [id number] Imaging Data Radiologist's Impression: Chest X-Ray 10/20/21 16:40 XR chest 1V portable CLINICAL HISTORY: Chest Pain. COMPARISON STUDY: 03/24/2016 TECHNIQUE: 1 view of the chest FINDINGS: Single frontal view of the chest demonstrates the heart to be mildly enlarged which is probably accentuated by the decreased inspiratory effort. There is a decreased inspiratory effort with elevation of the hemidiaphragms and crowding of the bronchovascular markings at the lung bases and centrally. The lungs are clear of alveolar opacities. There is no evidence for pleural effusion. There is no evidence for vascular congestion. There is no acute osseous pathology. IMPRESSION: 1. There is a decreased inspiratory effort with otherwise no acute chest disease. ACT 112: Negative or not required by law. Electronically signed by: Kishore Riggs M.D. 10/20/2021 5:08 PM Discharge Plan Visit Data Chief Complaint: Cardiac Assessment Stated Complaint: AFIB, SWELLING AND FLUID BUILD UP, ABORMAL EKG ED Provider: Tomy Sandy Discharge Problem: Atrial flutter Forms Stand Alone Forms: My [facility] Prescriptions Prescriptions: No Action finasteride 5 mg tablet 5 mg PO DAILY RF: 0 omeprazole 20 mg capsule,delayed release(DR/EC) 20 mg PO HS RF: 0 tamsulosin 0.4 mg capsule 0.4 mg PO DAILY RF: 0 isosorbide mononitrate 60 mg tablet extended release 24 hr 60 mg PO DAILY RF: 0 spironolactone 25 mg tablet 25 mg PO DAILY RF: 0 warfarin 10 mg tablet See Rx Instructions .ROUTE .COMPLEX RF: 0 atorvastatin 40 mg tablet 40 mg PO HS RF: 0 lisinopril 40 mg tablet 40 mg PO DAILY RF: 0 sertraline 100 mg tablet 100 mg PO DAILY RF: 0 sotalol 80 mg tablet See Rx Instructions .ROUTE .COMPLEX RF: 0 multivitamin Tablet 1 tab PO DAILY RF: 0 cyanocobalamin (vitamin B-12) [Vitamin B-12] 1,000 mcg Tablet 3,000 mcg PO DAILY RF: 0 aspirin 81 mg Tablet,Delayed Release (Dr/Ec) 81 mg PO DAILY RF: 0 fluticasone propionate 50 mcg/actuation [place],Suspension 2 spray INTRANASAL DAILY PRN (Reason: Nasal Congestion) RF: 0 diphenhydramine-acetaminophen [Tylenol PM Extra Strength] 25-500 mg Tablet 1 tab PO HS PRN (Reason: Sleep) RF: 0 glucosamine-chondroitin [Osteo Bi-Flex] 250-200 mg Tablet 2 tab PO DAILY RF: 0 metformin 500 mg Tablet 2,000 mg PO QPM RF: 0 Referrals Referrals: Deangelo Bashir MD [Primary Care Provider] - Discharge Problem: Atrial flutter Qualifiers: Atrial flutter type: unspecified Qualified Code(s): I48.92 - Unspecified atrial flutter
--- NOTE | 2021-10-20 17:10 | XRay Report ---
XR chest 1V portable CLINICAL HISTORY: Chest Pain. COMPARISON STUDY: 03/24/2016 TECHNIQUE: 1 view of the chest FINDINGS: Single frontal view of the chest demonstrates the heart to be mildly enlarged which is probably accen tuated by the decreased inspiratory effort. There is a decreased inspiratory effort with elevation of the hemidiaphragms and crowding of the bronchovascular markings at the lung bases and centrally. The lungs are clear of alveolar opacities. There is no evidence for pleural effusion. There is no eviden ce for vascular congestion. There is no acute osseous pathology. IMPRESSION: 1. There is a decreased inspiratory effort with otherwise no acute chest disease. ACT 112: Negative or not required by law. Electronically signed by: Kishore Riggs M.D. 10/20/2021 5:08 PM
[2021-10-20 17:36] LABS: Basophils # (auto) 0.04 K/uL (0-0.2); Basophils % (auto) 0.4 %; Eosinophils # (auto) 0.11 K/uL (0-0.5); Eosinophils % (auto) 1.2 %; Hematocrit (blood only) 40.8 % (42-52); Hemoglobin 13.6 g/dL (14.0-18.0); Immature Granulocytes # (auto) 0.01 K/uL (0.00-0.02); Immature Granulocytes % (auto) 0.1 %; Lymphocytes # (auto) 2.11 K/uL (1.2-3.4); Lymphocytes % (auto) 23.7 %; Mean Corpuscular Hemoglobin 29.8 pg (25-34); Mean Corpuscular Hgb Conc 33.3 g/dL (32-36); Mean Corpuscular Volume 89.5 fL (80-100); Mean Platelet Volume 10.7 fL (7.4-10.4); Monocytes # (auto) 0.73 K/uL (0.11-0.59); Monocytes % (auto) 8.2 %; Neutrophils # (auto) 5.91 K/uL (1.4-6.5); Neutrophils % (auto) 66.4 %; Platelet Count 201 K/uL (130-400); RDW Coefficient of Variation 14.8 % (11.5-14.5); RDW Standard Deviation 48.2 fL (36.4-46.3); Red Blood Count 4.56 M/uL (4.7-6.1); White Blood Count 8.91 K/uL (4.8-10.8)
[2021-10-20] MEDS ORDERED: STAT IV Infusion **Titration per Protocol STA (17:37)
[2021-10-20] MEDS ORDERED: METOPROLOL TARTRATE 1 MG/ML VIAL IV STA (17:40)
[2021-10-20 17:50] LABS: INR 2.3 (0.9-1.1); Partial Thromboplastin Ratio 1.1; Partial Thromboplastin Time 30.8 Seconds (21.0-31.0); Prothrombin Time 23.8 Seconds (9.0-12.0)
[2021-10-20] MEDS: dilTIAZem HCL 125 MG in DEXTROSE 5% 100 ML IV SCH (17:52)
[2021-10-20 17:55] LABS: Albumin Globulin Ratio 1.5 (0.9-2); Albumin Level 3.8 gm/dl (3.4-5.0); BUN Creatinine Ratio 21.8 (10-20); Bilirubin,Total 0.8 mg/dl (0.2-1.0); Calcium 8.9 mg/dl (8.5-10.1); Est GFR (African American) 104.5 ml/min; Est GFR (Non-African American) 90.2 ml/min; Globulin 2.6 gm/dl (2.5-4.0); Potassium 4.3 mmol/L (3.5-5.1); Total Protein 6.4 gm/dl (6.0-8.3)
[2021-10-20 17:56] LABS: Troponin I 0.04 ng/ml (0-0.04)
[2021-10-20] MEDS ORDERED: FUROSEMIDE 40 MG/4 ML VIAL IV ONE (20:37)
[2021-10-20] MEDS ORDERED: FLUTICASONE PROPIONATE NA SPR 16 GM BTL PRN (21:41)
[2021-10-20] MEDS ORDERED: ACETAMINOPHEN 325 MG TAB PO PRN (21:41)
[2021-10-20] MEDS ORDERED: NON-FORMULARY MEDICATION (Diphenhydramine-Acetaminophen [Tylenol Pm Extra Strength] 25-500 PO PRN (21:41)
[2021-10-20] MEDS ORDERED: NITROGLYCERIN SL 0.4 MG/TAB TAB SL PRN (21:41)
[2021-10-20] MEDS ORDERED: POLYETHYLENE (MIRALAX) 17 GM PACK PO PRN (21:41)
[2021-10-20] MEDS ORDERED: diphenhydrAMINE Capsule 25 MG CAP PO PRN (21:57)
[2021-10-20] MEDS ORDERED: ACETAMINOPHEN 500 MG TAB PO PRN (21:57)
[2021-10-20] MEDS: ATORVASTATIN 40 MG TAB PO SCH (22:15)
[2021-10-20] MEDS: PANTOprazole 40 MG TAB PO SCH (22:15)
[2021-10-20] MEDS: INSULIN ASPART PER UNIT SC SCH (22:16)
--- NOTE | 2021-10-20 22:53 | History and Physical Report ---
DATE OF ADMISSION: 10/20/2021. CHIEF COMPLAINT: Rapid AFib. HISTORY OF PRESENT ILLNESS: This is a 71-year-old male with past medical history significant for hyperlipidemia, diabetes, sleep apnea, hypertrophy of both inferior nasal turbinates, CAD, paroxysmal atrial fibrillation, atrial flutter, hypertension, GERD, obesity, BPH, depression, hypothyroidism, who had multiple cardioversions in the past, one of which was recently done on 10/13/2021. Went to Cardiology office today complaining increasing shortness of breath and lower extremity edema and also palpitations. Currently resting comfortably. Somewhat tachycardic. Denies any chest pain, getting short of breath on exertion. Denies any headache. No blurred visions, no earache. Has runny nose from his sinuses, sore throat from his sinuses. No cough, no fevers. Appetite is okay. No difficulty swallowing. No nausea, no abdominal pain. Normal bowel and bladder movements. Denies any blood in stool or black stools. ALLERGIES: WALNUT. PAST MEDICAL HISTORY: As mentioned above. PAST SURGICAL HISTORY: Carpal tunnel surgery, colonoscopy, cataract surgery, knee arthroplasty, right inguinal hernia repair, repair of nasal septum defect. MEDICATIONS: The patient is on aspirin 81 mg p.o. daily, atorvastatin 40 mg p.o. at bedtime, vitamin B12 3000 mcg p.o. daily, finasteride 5 mg p.o. daily, Flonase 2 sprays intranasal daily p.r.n., isosorbide mononitrate 60 mg p.o. daily, lisinopril 40 mg p.o. daily, metformin 2000 mg p.o. p.m., multivitamin 1 tablet p.o. daily, omeprazole 20 mg p.o. at bedtime, sertraline 100 mg p.o. at bedtime, sotalol 40 mg in the a.m. and 80 mg in the p.m., spironolactone 25 mg p.o. daily, Flomax 0.4 mg daily, warfarin 10 mg as directed. FAMILY HISTORY: Significant for father has diabetes, heart disorder, Parkinson's disease; mother has diabetes, eye problems; sister has rheumatoid arthritis. SOCIAL HISTORY: Single, no smoking. Alcohol occasional. No drug use. REVIEW OF SYSTEMS: As per HPI. Rest of review of systems is negative. PHYSICAL EXAMINATION: GENERAL: The patient is obese, not in acute distress. VITAL SIGNS: Temperature afebrile, pulse 118, respiratory rate 18, blood pressure 130/105, oxygen 97% on room air. HEENT: Pupils equal, round and reactive to light. Oral mucosa moist. NECK: No JVD, no neck masses. CARDIOVASCULAR: S1 and S2 heard. Regular rhythm, tachycardia. No murmurs. RESPIRATORY SYSTEM: Normal AP diameter. Mild wheezing. Occasional crackles. ABDOMEN: Soft, bowel sounds present, nontender, no distention. CENTRAL NERVOUS SYSTEM: Cranial nerves II-XII grossly intact, nonfocal. EXTREMITIES: Bilateral lower extremity, +2 edema present, no erythema seen. LABORATORY DATA: WBC 8.9, hemoglobin 13.6, hematocrit 40.8, platelets 201. PT 23.8, INR 2.3, APTT 30.8. Sodium 138, potassium 4.3, chloride 108, bicarbonate 24, BUN 17, creatinine 0.7, serum glucose 118, calcium 8.9, magnesium 1.7, total bilirubin 0.8, AST 21, ALT 26, alkaline phosphatase 70. Troponin I of 0.04. BNP 545. Lipase 52. TSH 1.4. SARS-CoV-2 rapid test negative. IMAGING DATA: Chest x-ray, decreased inspiratory effort with otherwise no acute disease. EKG: Atrial flutter with a rate of 119. No acute ST changes seen. ASSESSMENT AND PLAN: This is a 71-year-old male who presents with atrial flutter and congestive heart failure. 1. Atrial flutter: Multiple cardioversions, on sotalol at home. Sent by cardiology clinic and cardiology was notified by the ER. Continue Cardizem drip for now. INR is therapeutic at 2.3. Continue Coumadin. Continue sotalol. Monitor in the tele floor. 2. Acute congestive heart failure, possibly tachycardia induced. We will get an echocardiogram. He has some wheezing on exam and also lower extremity edema. Will give 40mg of iv Lasix tonight and monitor in tele floor. Further diuretics with cardiology. Daily weights, I's and O's. 3. History of hypertension: Continue his lisinopril, Imdur, and spironolactone. Will monitor his blood pressure. 4. History of coronary artery disease: . Follow troponins, follow echo. Continue his home medications of Imdur, lisinopril, statin, and aspirin. 5. Depression: Continue sertraline. 6. Diabetes: Hold his metformin. Insulin sliding scale. Follow the blood sugars. 7. Gastroesophageal reflux disease: Continue his omeprazole. 8. Benign prostatic hypertrophy: Continue his finasteride. 9. Hyperlipidemia: Continue his statin. 10. Sleep apnea.Patient not using cpap or oxygen. 11. Deep venous thrombosis prophylaxis: On Coumadin. INR therapeutic. DISPOSITION: Admit to tele floor. Level 1 full code. Expect to discharge home and follow up with the family doctor. Job ID: [id number] [facility]
[2021-10-21 05:56] LABS: Basophils # (auto) 0.02 K/uL (0-0.2); Basophils % (auto) 0.2 %; Eosinophils % (auto) 1.2 %; Hemoglobin 14.1 g/dL (14.0-18.0); Immature Granulocytes # (auto) 0.02 K/uL (0.00-0.02); Immature Granulocytes % (auto) 0.2 %; Lymphocytes # (auto) 1.78 K/uL (1.2-3.4); Lymphocytes % (auto) 21.2 %; Mean Corpuscular Hemoglobin 29.4 pg (25-34); Mean Corpuscular Hgb Conc 32.8 g/dL (32-36); Mean Corpuscular Volume 89.8 fL (80-100); Monocytes # (auto) 0.79 K/uL (0.11-0.59); Monocytes % (auto) 9.4 %; Neutrophils % (auto) 67.8 %; Platelet Count 192 K/uL (130-400); RDW Coefficient of Variation 14.7 % (11.5-14.5); RDW Standard Deviation 47.9 fL (36.4-46.3); Red Blood Count 4.79 M/uL (4.7-6.1); White Blood Count 8.41 K/uL (4.8-10.8)
[2021-10-21 06:00] LABS: INR 2.6 (0.9-1.1); Prothrombin Time 26.6 Seconds (9.0-12.0)
[2021-10-21 06:15] LABS: Troponin I 0.04 ng/ml (0-0.04)
[2021-10-21 06:18] LABS: BUN Creatinine Ratio 19.4 (10-20); Calcium 8.4 mg/dl (8.5-10.1); Creatinine Clr Calc Pharmacy 125.7 ml/min; Est GFR (African American) 111.3 ml/min; Magnesium 1.5 mg/dl (1.7-2.4); Potassium 3.6 mmol/L (3.5-5.1)
[2021-10-21] MEDS: dilTIAZem HCL 125 MG in DEXTROSE 5% 100 ML IV SCH ×2 (06:20→17:54)
[2021-10-21] MEDS ORDERED: MAGNESIUM SULFATE / D5W 1 GM/100 ML BAG IV ONE (06:58)
[2021-10-21] MEDS: MAGNESIUM SULFATE / D5W 1 GM/100 ML BAG IV SCH ×2 (08:00→10:41)
[2021-10-21 08:06] LABS: Estimated Average Glucose 157 mg/dl; Hemoglobin A1C 7.1 % (4.5-5.6)
--- NOTE | 2021-10-21 08:38 | Electrocardiogram Report ---
Test Reason : Blood Pressure : / mmHG Vent. Rate : 119 BPM Atrial Rate : 238 BPM P-R Int : 000 ms QRS Dur : 110 ms QT Int : 350 ms P-R-T Axes : -86 -07 096 degrees QTc Int : 492 ms Atrial flutter with 2:1 A-V conduction Abnormal ECG When compared with ECG of 13-OCT-2021 07:28, Atrial flutter has replaced Sinus rhythm HR has increased by 23 bpm Confirmed by Abe Ponce ([id number]) on 10/21/2021 8:37:36 AM Referred By: REFERRED SELF Confirmed By:Abe Ponce
--- NOTE | 2021-10-21 08:38 | Electrocardiogram Report ---
Test Reason : Blood Pressure : / mmHG Vent. Rate : 118 BPM Atrial Rate : 236 BPM P-R Int : 000 ms QRS Dur : 110 ms QT Int : 310 ms P-R-T Axes : 262 013 104 degrees QTc Int : 434 ms Atrial flutter with 2:1 A-V conduction Abnormal ECG When compared with ECG of 20-OCT-2021 16:39, No significant change Confirmed by Abe Ponce ([id number]) on 10/21/2021 8:38:04 AM Referred By: REFERRED SELF Confirmed By:Abe Ponce
[2021-10-21] MEDS: INSULIN ASPART PER UNIT SC SCH ×4 (08:40→20:12)
[2021-10-21] MEDS: MULTIVITAMIN TAB PO SCH (08:45)
[2021-10-21] MEDS: ASPIRIN 81 MG ECTAB PO SCH (08:45)
--- NOTE | 2021-10-21 08:45 | Cardiology Consultation ---
Date of Consultation October 21, 2021 Assessment & Plan (1) Atrial flutter: (2) Biventricular heart failure: (3) CAD (coronary artery disease): Patient admitted for recurrent symptomatic atrial flutter with RVR and acute decompensated HF in the setting of elevated ventricular rates. Volume status improved with IV lasix since admission. appears euvolemic. He remains in persistent atrial flutter, previously on sotalol. Discussed case with EP, Dr. Cage, who recommended the following: Hold Sotalol. consider amiodarone vs flutter ablation. Keep NPO for now. Await echo results] his echo has been completed since this morning and demonstrated biventricular heart failure with severely reduced LVEF at 25%. Its possible this is a result of tachyinduced cardiomyopathy as he has had persistently elevated rates over the last several months. He has no anginal symptoms and troponin is not elevated. He does have a history of underlying multivessel CAD in 2005, managed medically. Continue ASA, atorvastatin, isosorbide, lisinopril. Sotalol on hold, and will likely need transitioned to other beta kal. consider future Entresto. Await EP eval. Will not give additional diuretics at this time as he appears euvolemic. Case discussed with Dr. Butterfield Supervising Physician Co-Signing Physician Notes I have seen and examined the patient. I reviewed the medical record and discussed the case with Ms. Alonzo. I have also discussed the case with Dr. Prieto from electrophysiology. The plan will be to allow the sotalol to washout and then start amiodarone tomorrow. The patient is in congestive heart failure and we need to diurese him and provide guideline directed medication until his heart failure is improved. 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 History of Present Illness Attending Physician: Pankaj Johnson MD History of Present Illness Patient is a 71 year old male who is known to [facility] cardiology, followed by Dr. Chirinos as an outpatient. Most recent history includes recurrent atrial flutter in Sep 2021. He subsequently underwent successful cardioversion while on Sotalol on 10/13/21 converting to NSR. Approx 1 day later patient reported worsening SOB and palpitations. He was evaluated in clinic yesterday by TAWNYA Yates and found to have recurrent atrial flutter with RVR and symptoms to suggest CHF exacerbation. He was sent to [place] ER for evaluation and treatment. In ER he was provided with one dose IV lasix. Noted frequent urination and good outputs overnight. At rest, he is unaware of palpitations or tachypalpitations, but admits to dyspnea with minimal exertion. Troponin on arrival was not elevated. BNP only minimally elevated. Chest xray without acute findings. At time of consult, patient resting in bed feeling well/comfortable. edema improved since admission. SOB at baseline and no symptoms at rest. He denies symptoms of palpitations or tachypalpitations. No dizziness or lightheadedness. no chest pain. Past medical history: 1. Paroxysmal atrial flutter, on Coumadin and sotalol a. Status post DCCV x2 in the past (previously last cardioversion 2016) b. Status post DCCV 10/14/[address] Chirinos [facility]- quickly reverted back in atrial flutter, discovered 10/20/2021 in the setting of new heart failure 2. Coronary artery disease, diffuse three-vessel disease per cardiac catheterization in 2005- left main free of disease, lad mildly calcified, LAD focal and diffuse 25-30% stenosis, 50% focal stenosis of the large Diag, Large diagonal 90% stenosis in its mid to distal portion, Circumflex totally occluded- Circumflex fills retrograde collaterals from RCA, RCA diffusely diseased with multiple 25-30% stenoses 3. Dyslipidemia 4. Moderate LVH with grade 1 diastolic dysfunction 5. Mild AI 6. Moderate MR Allergies Allergy/AdvReac Type Severity Reaction Status Date / Time walnut Allergy Intermediate MOUTH Verified 10/20/21 18:50 BURNING Home Medications Medication Instructions Recorded Confirmed Type atorvastatin 40 mg tablet 40 mg PO HS 03/06/20 10/20/21 History finasteride 5 mg tablet 5 mg PO DAILY 03/06/20 10/20/21 History isosorbide mononitrate 60 mg 60 mg PO DAILY 03/06/20 10/20/21 History tablet,extended release 24 hr lisinopril 40 mg tablet 40 mg PO DAILY 03/06/20 10/20/21 History omeprazole 20 mg capsule,delayed 20 mg PO HS 03/06/20 10/20/21 History release sertraline 100 mg tablet 100 mg PO DAILY 03/06/20 10/20/21 History sotalol 80 mg tablet See Rx Instructions .ROUTE .COMPLEX 03/06/20 10/20/21 History spironolactone 25 mg tablet 25 mg PO DAILY 03/06/20 10/20/21 History tamsulosin 0.4 mg capsule 0.4 mg PO DAILY 03/06/20 10/20/21 History warfarin 10 mg tablet See Rx Instructions .ROUTE .COMPLEX 03/06/20 10/20/21 History aspirin 81 mg tablet,delayed 81 mg PO DAILY 06/02/20 10/20/21 History release cyanocobalamin (vitamin B-12) 3,000 mcg PO DAILY 06/02/20 10/20/21 History 1,000 mcg tablet (Vitamin B-12) fluticasone propionate 50 2 spray INTRANASAL DAILY PRN 06/02/20 10/20/21 History mcg/actuation nasal spray,suspension multivitamin 1 tab PO DAILY 06/02/20 10/20/21 History diphenhydramine 25 1 tab PO HS PRN 10/12/21 10/20/21 History mg-acetaminophen 500 mg tablet (Tylenol PM Extra Strength) glucosamine-chondroitin 250 mg-200 2 tab PO DAILY 10/12/21 10/20/21 History mg tablet (Osteo Bi-Flex) metformin 500 mg tablet 2,000 mg PO QPM 10/12/21 10/20/21 History Patient History Medical History (Updated 10/21/21 @ 13:06 by Silvia Alonzo PA-C) Arthritis Atrial fibrillation BPH (benign prostatic hyperplasia) Coronary artery disease Depression Diabetes mellitus, type 2 Elevated prostate specific antigen (PSA) GERD (gastroesophageal reflux disease) History of cardioversion X 1 *4 YEARS AGO Hyperlipidemia Hypertension Myocardial infarction SILENT *8 YEARS AGO Neuropathy LOLA. FEET Sleep apnea NO DEVICE Spinal stenosis Surgical History H/O hernia repair History of cardiac cath MULT.>NO STENTS (LAST ONE 20 YEARS AGO) History of carpal tunnel release RT History of colonoscopy History of tooth extraction Hx of cataract surgery RT/LEFT Hx of knee surgery Hx of nasal septoplasty Family History Mother Diabetes Cardiac disorder AMD (age related macular degeneration) Cancer Hypertension Father Diabetes Cardiac disorder Parkinson's disease Sister Rheumatoid arthritis Other No family history of adverse response to anesthesia Social History Smoking Status: Never smoker Second Hand Exposure: No; Hx Alcohol Use: No Hx Substance Use: No Preferred Language: Faroese Communication Ability: Effective [employer] Associate Required: No Beliefs That Will Affect Care: Advent Advent Beliefs: BAPTISM ([employer]) marital status: Single Current Living Situation: Alone How many Children do You have: 0 Feels Safe at Home: Yes Safety Concerns: Feels Safe At This Time Assistive Devices: CPAP Review of Systems Review of Systems: All systems reviewed & are unremarkable except as noted in HPI & below Physical Exam Constitutional: WD/WN, vitals as above well nourished; no acute distress Eyes: PERRL, conjunctivae normal, anicteric sclerae ENMT: external ear and nose normal, oropharynx normal Respiratory: normal respiratory effort, lungs clear to auscultation Cardiovascular: Rate/Rhythm: regular rhythm and + tachycardic Heart Sounds: + murmur (II/ systolic murmur) Vessels: no JVD Extremities: + edema (1+ right pretibial edema, no edema on left) Gastrointestinal (Abdomen): normal bowel sounds, soft, nontender, no hepatosplenomegaly Musculoskeletal: no cyanosis or clubbing, extremities motor strength 5/5 Neurologic: PERRL, EOMI, accommodation nl, no face palsy, no dysarthria Psychiatric: A+Ox3, euthymic affect Results & Data ([place]) Vital Signs (Past 12 Hours) Vital Signs Temp Pulse Pulse Resp BP BP BP 10/21/21 07:22 36.8 C 120 H 20 143/111 H 10/21/21 02:53 36.6 C 117 H 20 137/92 10/20/21 23:44 119 H 10/20/21 21:42 36.5 C 121 H 20 142/90 H 10/20/21 21:22 110 H 17 152/117 H 10/20/21 21:00 111 H 17 134/84 Pulse Ox 10/21/21 07:22 93 10/21/21 02:53 93 10/20/21 23:44 10/20/21 21:42 94 10/20/21 21:22 97 10/20/21 21:00 98 Laboratory Results 03/05/0610/21/21 10/21/21 Range/Units 11:08 09:33 07:17 WBC (4.8-10.8) K/uL RBC (4.7-6.1) M/uL Hgb (14.0-18.0) g/dL Hct (42-52) % MCV (80-100) fL MCH (25-34) pg MCHC (32-36) g/dL RDW Std Deviation (36.4-46.3) fL RDW Coeff of Ziyad (11.5-14.5) % Plt Count (130-400) K/uL MPV (7.4-10.4) fL Immature Gran % (Auto) % Neut % (Auto) % Lymph % (Auto) % [place] % (Auto) % Eos % (Auto) % Baso % (Auto) % Neut # (Auto) (1.4-6.5) K/uL Lymph # (Auto) (1.2-3.4) K/uL [place] # (Auto) (0.11-0.59) K/uL Eos # (Auto) (0-0.5) K/uL Baso # (Auto) (0-0.2) K/uL Immature Gran # (Auto) (0.00-0.02) K/uL PT (9.0-12.0) Seconds INR (0.9-1.1) APTT (21.0-31.0) Seconds PTT Ratio Sodium (136-145) mmol/L Potassium (3.5-5.1) mmol/L Chloride (98-107) mmol/L Carbon Dioxide (21-32) mmol/L Anion Gap (3-11) BUN (6-23) mg/dl Creatinine (0.6-1.4) mg/dl Est Cr Clr Drug Dosing ml/min Est GFR ( Amer) ml/min Est GFR (Non-Af Amer) ml/min BUN/Creatinine Ratio (10-20) Glucose (70-99(Fasting)) mg/dl POC Glucose 164 H 113 H (70-99) mg/dl Estimat Average Glucose mg/dl Hemoglobin A1c (4.5-5.6) % Calcium (8.5-10.1) mg/dl Magnesium (1.7-2.4) mg/dl Total Bilirubin (0.2-1.0) mg/dl AST (13-39) U/L ALT (7-52) U/L Alkaline Phosphatase (34-104) U/L Troponin I 0.04 (0-0.04) ng/ml B-Natriuretic Peptide (0-100) pg/ml Total Protein (6.0-8.3) gm/dl Albumin (3.4-5.0) gm/dl Globulin (2.5-4.0) gm/dl Albumin/Globulin Ratio (0.9-2) Lipase (11-82) U/L TSH (0.300-4.500) uIu/ml SARS-CoV-2, RNA, NAAT (NEGATIVE) 10/21/21 10/21/21 10/21/21 Range/Units 05:28 05:28 05:28 WBC 8.41 (4.8-10.8) K/uL RBC 4.79 (4.7-6.1) M/uL Hgb 14.1 (14.0-18.0) g/dL Hct 43.0 (42-52) % MCV 89.8 (80-100) fL MCH 29.4 (25-34) pg MCHC 32.8 (32-36) g/dL RDW Std Deviation 47.9 H (36.4-46.3) fL RDW Coeff of Ziyad 14.7 H (11.5-14.5) % Plt Count 192 (130-400) K/uL MPV 11.0 H (7.4-10.4) fL Immature Gran % (Auto) 0.2 % Neut % (Auto) 67.8 % Lymph % (Auto) 21.2 % [place] % (Auto) 9.4 % Eos % (Auto) 1.2 % Baso % (Auto) 0.2 % Neut # (Auto) 5.70 (1.4-6.5) K/uL Lymph # (Auto) 1.78 (1.2-3.4) K/uL [place] # (Auto) 0.79 H (0.11-0.59) K/uL Eos # (Auto) 0.10 (0-0.5) K/uL Baso # (Auto) 0.02 (0-0.2) K/uL Immature Gran # (Auto) 0.02 (0.00-0.02) K/uL PT (9.0-12.0) Seconds INR (0.9-1.1) APTT (21.0-31.0) Seconds PTT Ratio Sodium 140 (136-145) mmol/L Potassium 3.6 (3.5-5.1) mmol/L Chloride 106 (98-107) mmol/L Carbon Dioxide 25 (21-32) mmol/L Anion Gap 9 (3-11) BUN 13 (6-23) mg/dl Creatinine 0.67 (0.6-1.4) mg/dl Est Cr Clr Drug Dosing 125.7 ml/min Est GFR ( Amer) 111.3 ml/min Est GFR (Non-Af Amer) 96.0 ml/min BUN/Creatinine Ratio 19.4 (10-20) Glucose 106 H (70-99(Fasting)) mg/dl POC Glucose (70-99) mg/dl Estimat Average Glucose 157 mg/dl Hemoglobin A1c 7.1 H (4.5-5.6) % Calcium 8.4 L (8.5-10.1) mg/dl Magnesium 1.5 L (1.7-2.4) mg/dl Total Bilirubin (0.2-1.0) mg/dl AST (13-39) U/L ALT (7-52) U/L Alkaline Phosphatase (34-104) U/L Troponin I 0.04 (0-0.04) ng/ml B-Natriuretic Peptide (0-100) pg/ml Total Protein (6.0-8.3) gm/dl Albumin (3.4-5.0) gm/dl Globulin (2.5-4.0) gm/dl Albumin/Globulin Ratio (0.9-2) Lipase (11-82) U/L TSH (0.300-4.500) uIu/ml SARS-CoV-2, RNA, NAAT (NEGATIVE) 10/21/21 10/21/21 10/20/21 Range/Units 05:28 05:28 22:27 WBC (4.8-10.8) K/uL RBC (4.7-6.1) M/uL Hgb (14.0-18.0) g/dL Hct (42-52) % MCV (80-100) fL MCH (25-34) pg MCHC (32-36) g/dL RDW Std Deviation (36.4-46.3) fL RDW Coeff of Ziyad (11.5-14.5) % Plt Count (130-400) K/uL MPV (7.4-10.4) fL Immature Gran % (Auto) % Neut % (Auto) % Lymph % (Auto) % [place] % (Auto) % Eos % (Auto) % Baso % (Auto) % Neut # (Auto) (1.4-6.5) K/uL Lymph # (Auto) (1.2-3.4) K/uL [place] # (Auto) (0.11-0.59) K/uL Eos # (Auto) (0-0.5) K/uL Baso # (Auto) (0-0.2) K/uL Immature Gran # (Auto) (0.00-0.02) K/uL PT 26.6 H (9.0-12.0) Seconds INR 2.6 H (0.9-1.1) APTT (21.0-31.0) Seconds PTT Ratio Sodium (136-145) mmol/L Potassium (3.5-5.1) mmol/L Chloride (98-107) mmol/L Carbon Dioxide (21-32) mmol/L Anion Gap (3-11) BUN (6-23) mg/dl Creatinine (0.6-1.4) mg/dl Est Cr Clr Drug Dosing ml/min Est GFR ( Amer) ml/min Est GFR (Non-Af Amer) ml/min BUN/Creatinine Ratio (10-20) Glucose (70-99(Fasting)) mg/dl POC Glucose 134 H (70-99) mg/dl Estimat Average Glucose mg/dl Hemoglobin A1c (4.5-5.6) % Calcium (8.5-10.1) mg/dl Magnesium (1.7-2.4) mg/dl Total Bilirubin (0.2-1.0) mg/dl AST (13-39) U/L ALT (7-52) U/L Alkaline Phosphatase (34-104) U/L Troponin I Cancelled (0-0.04) ng/ml B-Natriuretic Peptide (0-100) pg/ml Total Protein (6.0-8.3) gm/dl Albumin (3.4-5.0) gm/dl Globulin (2.5-4.0) gm/dl Albumin/Globulin Ratio (0.9-2) Lipase (11-82) U/L TSH (0.300-4.500) uIu/ml SARS-CoV-2, RNA, NAAT (NEGATIVE) 10/20/21 10/20/21 10/20/21 Range/Units 18:58 17:25 17:25 WBC (4.8-10.8) K/uL RBC (4.7-6.1) M/uL Hgb (14.0-18.0) g/dL Hct (42-52) % MCV (80-100) fL MCH (25-34) pg MCHC (32-36) g/dL RDW Std Deviation (36.4-46.3) fL RDW Coeff of Ziyad (11.5-14.5) % Plt Count (130-400) K/uL MPV (7.4-10.4) fL Immature Gran % (Auto) % Neut % (Auto) % Lymph % (Auto) % [place] % (Auto) % Eos % (Auto) % Baso % (Auto) % Neut # (Auto) (1.4-6.5) K/uL Lymph # (Auto) (1.2-3.4) K/uL [place] # (Auto) (0.11-0.59) K/uL Eos # (Auto) (0-0.5) K/uL Baso # (Auto) (0-0.2) K/uL Immature Gran # (Auto) (0.00-0.02) K/uL PT (9.0-12.0) Seconds INR (0.9-1.1) APTT (21.0-31.0) Seconds PTT Ratio Sodium (136-145) mmol/L Potassium (3.5-5.1) mmol/L Chloride (98-107) mmol/L Carbon Dioxide (21-32) mmol/L Anion Gap (3-11) BUN (6-23) mg/dl Creatinine (0.6-1.4) mg/dl Est Cr Clr Drug Dosing ml/min Est GFR ( Amer) ml/min Est GFR (Non-Af Amer) ml/min BUN/Creatinine Ratio (10-20) Glucose (70-99(Fasting)) mg/dl POC Glucose (70-99) mg/dl Estimat Average Glucose mg/dl Hemoglobin A1c (4.5-5.6) % Calcium (8.5-10.1) mg/dl Magnesium 1.7 (1.7-2.4) mg/dl Total Bilirubin (0.2-1.0) mg/dl AST (13-39) U/L ALT (7-52) U/L Alkaline Phosphatase (34-104) U/L Troponin I (0-0.04) ng/ml B-Natriuretic Peptide (0-100) pg/ml Total Protein (6.0-8.3) gm/dl Albumin (3.4-5.0) gm/dl Globulin (2.5-4.0) gm/dl Albumin/Globulin Ratio (0.9-2) Lipase (11-82) U/L TSH 1.453 (0.300-4.500) uIu/ml SARS-CoV-2, RNA, NAAT NEGATIVE (NEGATIVE) 10/20/21 10/20/21 10/20/21 Range/Units 17:24 17:24 17:24 WBC (4.8-10.8) K/uL RBC (4.7-6.1) M/uL Hgb (14.0-18.0) g/dL Hct (42-52) % MCV (80-100) fL MCH (25-34) pg MCHC (32-36) g/dL RDW Std Deviation (36.4-46.3) fL RDW Coeff of Ziyad (11.5-14.5) % Plt Count (130-400) K/uL MPV (7.4-10.4) fL Immature Gran % (Auto) % Neut % (Auto) % Lymph % (Auto) % [place] % (Auto) % Eos % (Auto) % Baso % (Auto) % Neut # (Auto) (1.4-6.5) K/uL Lymph # (Auto) (1.2-3.4) K/uL [place] # (Auto) (0.11-0.59) K/uL Eos # (Auto) (0-0.5) K/uL Baso # (Auto) (0-0.2) K/uL Immature Gran # (Auto) (0.00-0.02) K/uL PT 23.8 H (9.0-12.0) Seconds INR 2.3 H (0.9-1.1) APTT 30.8 (21.0-31.0) Seconds PTT Ratio 1.1 Sodium 138 (136-145) mmol/L Potassium 4.3 (3.5-5.1) mmol/L Chloride 108 H (98-107) mmol/L Carbon Dioxide 24 (21-32) mmol/L Anion Gap 6 (3-11) BUN 17 (6-23) mg/dl Creatinine 0.78 (0.6-1.4) mg/dl Est Cr Clr Drug Dosing 122.0 ml/min Est GFR ( Amer) 104.5 ml/min Est GFR (Non-Af Amer) 90.2 ml/min BUN/Creatinine Ratio 21.8 H (10-20) Glucose 118 H (70-99(Fasting)) mg/dl POC Glucose (70-99) mg/dl Estimat Average Glucose mg/dl Hemoglobin A1c (4.5-5.6) % Calcium 8.9 (8.5-10.1) mg/dl Magnesium (1.7-2.4) mg/dl Total Bilirubin 0.8 (0.2-1.0) mg/dl AST 21 (13-39) U/L ALT 26 (7-52) U/L Alkaline Phosphatase 70 (34-104) U/L Troponin I 0.04 (0-0.04) ng/ml B-Natriuretic Peptide 545 H (0-100) pg/ml Total Protein 6.4 (6.0-8.3) gm/dl Albumin 3.8 (3.4-5.0) gm/dl Globulin 2.6 (2.5-4.0) gm/dl Albumin/Globulin Ratio 1.5 (0.9-2) Lipase 52 (11-82) U/L TSH (0.300-4.500) uIu/ml SARS-CoV-2, RNA, NAAT (NEGATIVE) 10/20/21 Range/Units 17:24 WBC 8.91 (4.8-10.8) K/uL RBC 4.56 L (4.7-6.1) M/uL Hgb 13.6 L (14.0-18.0) g/dL Hct 40.8 L (42-52) % MCV 89.5 (80-100) fL MCH 29.8 (25-34) pg MCHC 33.3 (32-36) g/dL RDW Std Deviation 48.2 H (36.4-46.3) fL RDW Coeff of Ziyad 14.8 H (11.5-14.5) % Plt Count 201 (130-400) K/uL MPV 10.7 H (7.4-10.4) fL Immature Gran % (Auto) 0.1 % Neut % (Auto) 66.4 % Lymph % (Auto) 23.7 % [place] % (Auto) 8.2 % Eos % (Auto) 1.2 % Baso % (Auto) 0.4 % Neut # (Auto) 5.91 (1.4-6.5) K/uL Lymph # (Auto) 2.11 (1.2-3.4) K/uL [place] # (Auto) 0.73 H (0.11-0.59) K/uL Eos # (Auto) 0.11 (0-0.5) K/uL Baso # (Auto) 0.04 (0-0.2) K/uL Immature Gran # (Auto) 0.01 (0.00-0.02) K/uL PT (9.0-12.0) Seconds INR (0.9-1.1) APTT (21.0-31.0) Seconds PTT Ratio Sodium (136-145) mmol/L Potassium (3.5-5.1) mmol/L Chloride (98-107) mmol/L Carbon Dioxide (21-32) mmol/L Anion Gap (3-11) BUN (6-23) mg/dl Creatinine (0.6-1.4) mg/dl Est Cr Clr Drug Dosing ml/min Est GFR ( Amer) ml/min Est GFR (Non-Af Amer) ml/min BUN/Creatinine Ratio (10-20) Glucose (70-99(Fasting)) mg/dl POC Glucose (70-99) mg/dl Estimat Average Glucose mg/dl Hemoglobin A1c (4.5-5.6) % Calcium (8.5-10.1) mg/dl Magnesium (1.7-2.4) mg/dl Total Bilirubin (0.2-1.0) mg/dl AST (13-39) U/L ALT (7-52) U/L Alkaline Phosphatase (34-104) U/L Troponin I (0-0.04) ng/ml B-Natriuretic Peptide (0-100) pg/ml Total Protein (6.0-8.3) gm/dl Albumin (3.4-5.0) gm/dl Globulin (2.5-4.0) gm/dl Albumin/Globulin Ratio (0.9-2) Lipase (11-82) U/L TSH (0.300-4.500) uIu/ml SARS-CoV-2, RNA, NAAT (NEGATIVE) Diagnostic Findings Telemetry reviewed: persistent atrial flutter with HR around 115 bpm Chest xray on admission: IIMPRESSION: 1. There is a decreased inspiratory effort with otherwise no acute chest disease. echo report reviewed from this morning: LV is mildly dilated LV systolic function is severely reduced EF 25-30% RV systolic function is moderately reduced LA is severely dilated RA is severely dilated Mild to moderate AI Severe MR. EKG on admission: Atrial flutter with 2:1 A-V conduction Abnormal ECG When compared with ECG of 20-OCT-2021 16:39, No significant change Medications Administered Current Inpatient Medications Acetaminophen (Acetaminophen 325 Mg Tab) 650 mg PO Q4H PRN PRN Reason: Pain or Fever Stop: 11/19/21 21:40 Acetaminophen (Acetaminophen 500 Mg Tab) 500 mg PO HS PRN PRN Reason: Sleep Stop: 11/19/21 21:56 Aspirin (Aspirin 81 Mg Ectab) 81 mg PO DAILY [facility] Stop: 11/20/21 08:59 Last Admin: 10/21/21 08:45 Dose: 81 mg Documented by: Atorvastatin Calcium (Atorvastatin 40 Mg Tab) 40 mg PO HS [facility]LOS Stop: 11/19/21 21:40 Last Admin: 10/20/21 22:15 Dose: 40 mg Documented by: Cyanocobalamin (Cyanocobalamin (B-12) 500 Mcg Tablet) 3,000 mcg PO DAILY [facility]LOS Stop: 11/20/21 08:59 Last Admin: 10/21/21 08:47 Dose: 3,000 mcg Documented by: Diphenhydramine HCl (Diphenhydramine Capsule 25 Mg Cap) 25 mg PO HS PRN PRN Reason: Sleep Stop: 11/19/21 21:56 Finasteride (Finasteride 5 Mg Tab) 5 mg PO DAILY [facility] Stop: 11/20/21 08:59 Last Admin: 10/21/21 08:46 Dose: 5 mg Documented by: Fluticasone Propionate (Fluticasone Propionate Na Spr 16 Gm Btl) 2 sprays NA DAILY PRN PRN Reason: Nasal Congestion Stop: 11/19/21 21:40 Glucosamine Sulfate (Glucosamine Sulfate 500 Mg Cap) 500 mg PO DAILY [facility] Stop: 11/20/21 08:59 Last Admin: 10/21/21 08:46 Dose: 500 mg Documented by: Diltiazem HCl 125 mg/ Dextrose 125 mls @ 5 mls/hr IV .Q24H [facility]; Protocol Stop: 11/19/21 17:44 Last Titration: 10/21/21 07:05 Dose: 10 mg/hr, 10 mls/hr Documented by: Insulin Aspart (Insulin Aspart Per Unit) 0 units SC ACHS [facility] Stop: 11/19/21 21:40 Last Admin: 10/21/21 12:14 Dose: Not Given Documented by: Isosorbide Mononitrate (Isosorbide [place] Extended Rel 60 Mg Tabcr) 60 mg PO DAILY [facility] Stop: 11/20/21 08:59 Last Admin: 10/21/21 08:46 Dose: 60 mg Documented by: Lisinopril (Lisinopril 40 Mg Tab) 40 mg PO DAILY [facility] Stop: 11/20/21 08:59 Last Admin: 10/21/21 08:46 Dose: 40 mg Documented by: Magnesium Oxide (Magnesium Oxide 400 Mg Tab) 400 mg PO BID [facility] Stop: 11/20/21 08:59 Last Admin: 10/21/21 08:46 Dose: 400 mg Documented by: Multivitamins (Multivitamin Tab) 1 tab PO DAILY [facility] Stop: 11/20/21 08:59 Last Admin: 10/21/21 08:45 Dose: 1 tab Documented by: Nitroglycerin (Nitroglycerin Sl 0.4 Mg/Tab Tab) 0.4 mg SL Q5M PRN PRN Reason: Chest Pain Stop: 11/19/21 21:40 Pantoprazole Sodium (Pantoprazole 40 Mg Tab) 40 mg PO HS [facility] Stop: 11/19/21 21:40 Last Admin: 10/20/21 22:15 Dose: 40 mg Documented by: Polyethylene Glycol (Polyethylene (Miralax) 17 Gm Pack) 17 gm PO DAILY PRN PRN Reason: Constipation Stop: 11/19/21 21:40 Sertraline HCl (Sertraline Hcl 100 Mg Tablet) 100 mg PO DAILY [facility] Stop: 11/20/21 08:59 Last Admin: 10/21/21 08:46 Dose: 100 mg Documented by: Spironolactone (Spironolactone 25 Mg Tab) 25 mg PO DAILY [facility] Stop: 11/20/21 08:59 Last Admin: 10/21/21 08:46 Dose: 25 mg Documented by: Tamsulosin HCl (Tamsulosin Hcl 0.4 Mg Cap) 0.4 mg PO [id number] [facility] Stop: 11/20/21 16:29 Warfarin Sodium (Warfarin Sod 10 Mg Tab) 10 mg PO [email or web address] [facility] Stop: 11/21/21 15:59 Warfarin Sodium (Warfarin Sod 5 Mg Tab) 5 mg PO [email or web address] [facility] Stop: 11/20/21 15:59 (1) Atrial flutter Atrial flutter type: unspecified Qualified Code(s): I48.92 - Unspecified atrial flutter
[2021-10-21] MEDS: SPIRONOLACTONE 25 MG TAB PO SCH (08:46)
[2021-10-21] MEDS: lisinopril 40 MG TAB PO SCH (08:46)
[2021-10-21] MEDS: ISOSORBIDE MONO EXTENDED REL 60 MG TABCR PO SCH (08:46)
[2021-10-21] MEDS: FINASTERIDE 5 MG TAB PO SCH (08:46)
[2021-10-21] MEDS: MAGNESIUM OXIDE 400 MG TAB PO SCH ×2 (08:46→20:07)
[2021-10-21] MEDS: SERTRALINE HCL 100 MG TABLET PO SCH (08:46)
[2021-10-21] MEDS: GLUCOSAMINE SULFATE 500 MG CAP PO SCH (08:46)
[2021-10-21] MEDS: CYANOCOBALAMIN (B-12) 500 MCG TABLET PO SCH (08:47)
[2021-10-21] MEDS ORDERED: SOTALOL HCL 80 MG TAB PO SCH ×3 (09:00→22:00)
[2021-10-21] MEDS: WARFARIN SOD 5 MG TAB PO SCH (17:16)
[2021-10-21] MEDS: TAMSULOSIN HCL 0.4 MG CAP PO SCH (17:17)
--- NOTE | 2021-10-21 18:08 | Hospitalist Progress Note ---
Date of Service October 21, 2021 Assessment & Plan (1) Atrial flutter: Plan: Present on admission with worsening SOB EKG showed Atrial flutter with RVR Pt was started on Cardizem drip Cardiology on board case discussed with dr. Butterfield that recommended to continue to hold Sotalol to allow the sotalol to washout and then to start amiodarone tomorrow. Continue Coumadin with INR 2.6 Continue monitor closely in telemetry Acute systolic CHF Possible due to tachycardia induced cardiomyopathy from the atrial flutter with RVR CXR showed no evidence for pleural effusion or vascular congestion. ECHO showed LA and RV is severely dilated with EF 25-30 Lasix 40mg IV given Continue spironolactone Will reassess in am for additional lasix Continue monitor closely Hypomagnesemia Mg 1.5 today Mg replaced Continue monitor electrolytes Hypertension: Continue his lisinopril, Imdur, and spironolactone. Continue monitor blood pressure. CAD Continue his home medications of Imdur, lisinopril, statin, and aspirin. Depression Continue sertraline. Diabetes Most recent hab1c 7.1 Continue to hold metformin. Continue novolog sliding scale GERD Continue his omeprazole. Benign prostatic hypertrophy: Continue his finasteride. Hyperlipidemia: Continue his statin. Sleep apnea. Not using cpap or oxygen. Deep venous thrombosis prophylaxis: On Coumadin with INR therapeutic. 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 [place] Lying in bed with no acute distress Pt said that he was awake all night using the bathroom due to diuresis He is very anxious to go home Denies any chest pain, palpitation, dizziness and SOB Review of Systems Review of Systems: All systems reviewed & are unremarkable except as noted in Subjective Physical Exam Physical Exam: General- No acute distress Head- atraumatic Eyes- PERRL, EOMI, ENT- oropharynx clear Neck- supple, no JVD Lungs- clear to auscultation Heart- regular rhythm; +systolic murmur Abdomen- normal bowel sounds, soft, nontender Extremities- no calf tenderness, +edema Neuro- alert, oriented x 3; PERRL, EOMI; no facial palsy; no dysarthria Skin- warm & dry Results & Data Results & Data ([facility]) Vital Signs (Past 12 Hours) Vital Signs Temp Pulse Pulse Resp BP BP Pulse Ox 10/21/21 15:35 36.5 C 119 H 19 141/96 H 93 10/21/21 11:10 37.0 C 118 H 19 135/92 92 10/21/21 09:00 118 H 10/21/21 07:22 36.8 C 120 H 20 143/111 H 93 (1) Atrial flutter Atrial flutter type: unspecified Qualified Code(s): I48.92 - Unspecified atrial flutter
[2021-10-21] MEDS: ATORVASTATIN 40 MG TAB PO SCH (20:06)
[2021-10-21] MEDS: PANTOprazole 40 MG TAB PO SCH (20:07)
[2021-10-22] MEDS: dilTIAZem HCL 125 MG in DEXTROSE 5% 100 ML IV SCH (05:08)
[2021-10-22 06:14] LABS: INR 2.3 (0.9-1.1); Prothrombin Time 23.5 Seconds (9.0-12.0)
[2021-10-22 06:27] LABS: BUN Creatinine Ratio 14.7 (10-20); Calcium 8.8 mg/dl (8.5-10.1); Creatinine Clr Calc Pharmacy 123.8 ml/min; Est GFR (African American) 110.6 ml/min; Est GFR (Non-African American) 95.4 ml/min; Magnesium 1.7 mg/dl (1.7-2.4); Potassium 3.5 mmol/L (3.5-5.1)
[2021-10-22] MEDS: AMIODARONE 200 MG TAB PO SCH ×3 (07:57→16:56)
[2021-10-22] MEDS: MULTIVITAMIN TAB PO SCH (07:58)
[2021-10-22] MEDS: SERTRALINE HCL 100 MG TABLET PO SCH (07:58)
[2021-10-22] MEDS: MAGNESIUM OXIDE 400 MG TAB PO SCH ×2 (07:58→19:16)
[2021-10-22] MEDS: SPIRONOLACTONE 25 MG TAB PO SCH (07:58)
[2021-10-22] MEDS: FINASTERIDE 5 MG TAB PO SCH (07:58)
[2021-10-22] MEDS: GLUCOSAMINE SULFATE 500 MG CAP PO SCH (07:58)
[2021-10-22] MEDS: CYANOCOBALAMIN (B-12) 500 MCG TABLET PO SCH (07:59)
[2021-10-22] MEDS: lisinopril 40 MG TAB PO SCH (07:59)
[2021-10-22] MEDS: ASPIRIN 81 MG ECTAB PO SCH (07:59)
[2021-10-22] MEDS: POTASSIUM CHLORIDE CRTAB 20 MEQ TABCR PO SCH ×2 (08:00→19:17)
[2021-10-22] MEDS: ISOSORBIDE MONO EXTENDED REL 60 MG TABCR PO SCH (08:00)
[2021-10-22] MEDS: INSULIN ASPART PER UNIT SC SCH ×4 (08:25→20:07)
--- NOTE | 2021-10-22 08:32 | Cardiology Progress Note ---
Date of Service October 22, 2021 Assessment & Plan (1) Atrial flutter: (2) Biventricular heart failure: (3) CAD (coronary artery disease): Plan: Patient admitted for recurrent symptomatic atrial flutter with RVR and acute decompensated systolic HF in the setting of elevated heart rates. Volume status improved with IV lasix since admission. He remains in persistent atrial flutter, previously on sotalol (wash out complete), now on amiodarone. Case was previously discussed with EP, Dr. Cage, who recommended the following: Holding Sotalol. Start amiodarone today. May benefit from flutter ablation in the future His echo demonstrated biventricular heart failure with severely reduced LVEF at 25%. Its possible this is a result of tachy-induced cardiomyopathy as he has had persistently elevated rates over the last several months. Patient remains hypervolemic on exam, but responding well to Lasix- continue IV Lasix with potassium supplementation- trend renal function and replace electrolytes as necessarily. As volume status improves this too may improve his heart rates. He has no anginal symptoms and troponin is not elevated. He does have a history of underlying multivessel CAD in 2006, managed medically. We discussed atrial flutter in great detail as well has systolic heart failure. Made him aware that many medication changes will be made to improve his heart rates and his LV systolic function. Will need to titrate GDMT aggressively. Continue ASA, atorvastatin, isosorbide, lisinopril. Start evidence based beta kal, Metoprolol succinate 25 mg daily. Will Likely need to increase in the near future. Consider transitioning from Lisinopril to Entresto. Continue Spironolactone 25 mg BID Appreciate EP's recommendations Case discussed with Dr. Butterfield. Will continue to follow. Admission and Anticipated Discharge Date Admission Date: October 20, 2021 Supervising Physician Co-Signing Physician Notes I have seen and examined the patient. I reviewed the medical record. I have discussed the case with the nurse practitioner. The patient is in a persistent atrial fibrillation with higher heart rates even after starting metoprolol succinate 25 mg early this morning. I will give him a dose of 25 mg of Toprol tartrate this afternoon and increase his metoprolol succinate to 25 mg twice daily. The plan will be to proceed with a cardioversion in the morning. I have explained the risk, benefit and intent of the procedure to the patient and he is willing to proceed. It should be noted that the patient was on warfarin with a therapeutic INR when he was admitted so I do not believe a transesophageal echocardiogram is indicated. Subjective Chart and telemetry reviewed. Patient mildly improved with dose of IV Lasix. Sotalol washout initiated and patient was started on Amiodarone this am. EP consulted- case reviewed with Dr. Cage, planning on cardioversion once amio has been in system. 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 LVEF 25-30%. Renal function stable, potassium low normal. IV Lasix continued with KCL supplementation. Upon entrance into the room patient resting comfortably in bed. Noted that he has been up and down to the bathroom often this morning. Believes that the lasix is working well and notes a reduction in his lower extremity edema and shortness of breath. Denies any chest pain. No palpitations, asymptomatic with his aflutter. Tele: Aflutter 120s - 150s if he is up walking (asympotmatic) I&O: +1.5L Weight: 132kg >> 103kg INR: 2.3 (10/22) Review of Systems Review of Systems: All systems reviewed & are unremarkable except as noted in HPI & below Physical Exam Constitutional: WD/WN, vitals as above well nourished; no acute distress Eyes: PERRL, conjunctivae normal, anicteric sclerae ENMT: external ear and nose normal, oropharynx normal Respiratory: normal respiratory effort, lungs clear to auscultation Cardiovascular: Rate/Rhythm: regular rhythm and + tachycardic Heart Sounds: + murmur (II/ systolic murmur) Vessels: no JVD Extremities: + edema (BLLE +1 to +2, L>R) Gastrointestinal (Abdomen): normal bowel sounds, soft, nontender, no hepatosplenomegaly Musculoskeletal: no cyanosis or clubbing, extremities motor strength 5/5 Neurologic: PERRL, EOMI, accommodation nl, no face palsy, no dysarthria Psychiatric: A+Ox3, euthymic affect Results & Data ([facility]) Vital Signs (Past 12 Hours) Vital Signs Temp Pulse Pulse Resp BP Pulse Ox 10/22/21 07:36 36.6 C 123 H 20 156/90 H 93 10/22/21 03:42 36.8 C 120 H 18 122/80 91 10/21/21 23:46 36.8 C 118 H 18 157/87 H 90 10/21/21 22:19 123 H Laboratory Results 10/22/21 10/22/21 10/22/21 Range/Units 07:17 05:36 05:36 PT 23.5 H (9.0-12.0) Seconds INR 2.3 H (0.9-1.1) Sodium 141 (136-145) mmol/L Potassium 3.5 (3.5-5.1) mmol/L Chloride 107 (98-107) mmol/L Carbon Dioxide 25 (21-32) mmol/L Anion Gap 9 (3-11) BUN 10 (6-23) mg/dl Creatinine 0.68 (0.6-1.4) mg/dl Est Cr Clr Drug Dosing 123.8 ml/min Est GFR ( Amer) 110.6 ml/min Est GFR (Non-Af Amer) 95.4 ml/min BUN/Creatinine Ratio 14.7 (10-20) Glucose 129 H (70-99(Fasting)) mg/dl POC Glucose 133 H (70-99) mg/dl Calcium 8.8 (8.5-10.1) mg/dl Magnesium 1.7 (1.7-2.4) mg/dl Troponin I (0-0.04) ng/ml 10/21/21 10/21/21 10/21/21 Range/Units 20:10 16:34 11:08 PT (9.0-12.0) Seconds INR (0.9-1.1) Sodium (136-145) mmol/L Potassium (3.5-5.1) mmol/L Chloride (98-107) mmol/L Carbon Dioxide (21-32) mmol/L Anion Gap (3-11) BUN (6-23) mg/dl Creatinine (0.6-1.4) mg/dl Est Cr Clr Drug Dosing ml/min Est GFR ( Amer) ml/min Est GFR (Non-Af Amer) ml/min BUN/Creatinine Ratio (10-20) Glucose (70-99(Fasting)) mg/dl POC Glucose 112 H 174 H 164 H (70-99) mg/dl Calcium (8.5-10.1) mg/dl Magnesium (1.7-2.4) mg/dl Troponin I (0-0.04) ng/ml 10/21/21 Range/Units 09:33 PT (9.0-12.0) Seconds INR (0.9-1.1) Sodium (136-145) mmol/L Potassium (3.5-5.1) mmol/L Chloride (98-107) mmol/L Carbon Dioxide (21-32) mmol/L Anion Gap (3-11) BUN (6-23) mg/dl Creatinine (0.6-1.4) mg/dl Est Cr Clr Drug Dosing ml/min Est GFR ( Amer) ml/min Est GFR (Non-Af Amer) ml/min BUN/Creatinine Ratio (10-20) Glucose (70-99(Fasting)) mg/dl POC Glucose (70-99) mg/dl Calcium (8.5-10.1) mg/dl Magnesium (1.7-2.4) mg/dl Troponin I 0.04 (0-0.04) ng/ml (1) Atrial flutter Atrial flutter type: unspecified Qualified Code(s): I48.92 - Unspecified atrial flutter
--- NOTE | 2021-10-22 08:33 | Electrocardiogram Report ---
Test Reason : Blood Pressure : / mmHG Vent. Rate : 122 BPM Atrial Rate : 244 BPM P-R Int : 000 ms QRS Dur : 114 ms QT Int : 358 ms P-R-T Axes : 269 -11 076 degrees QTc Int : 510 ms Atrial flutter with variable A-V block with premature ventricular or aberrantly conducted complexes Abnormal ECG When compared with ECG of 21-OCT-2021 05:44, No significant change Confirmed by Abe Ponce ([id number]) on 10/22/2021 8:32:37 AM Referred By: REFERRED SELF Confirmed By:Abe Ponce
[2021-10-22] MEDS ORDERED: FUROSEMIDE 20 MG TAB PO ONE (08:53)
[2021-10-22] MEDS ORDERED: METOPROLOL SUCC 25MG EXT REL TAB PO SCH (09:00)
[2021-10-22] MEDS ORDERED: FUROSEMIDE 40 MG/4 ML VIAL IV SCH (09:00)
[2021-10-22] MEDS ORDERED: METOPROLOL TARTRATE 25 MG TAB PO STA (13:15)
[2021-10-22] MEDS ORDERED: WARFARIN SOD 10 MG TAB PO SCH (16:00)
[2021-10-22] MEDS: TAMSULOSIN HCL 0.4 MG CAP PO SCH (16:57)
[2021-10-22] MEDS: FUROSEMIDE 40 MG TAB PO SCH (16:58)
[2021-10-22] MEDS: PANTOprazole 40 MG TAB PO SCH (19:16)
[2021-10-22] MEDS: METOPROLOL SUCC 25MG EXT REL TAB PO SCH (19:17)
[2021-10-22] MEDS: ATORVASTATIN 40 MG TAB PO SCH (19:18)
--- NOTE | 2021-10-22 20:15 | Anesthesiology Consultation ---
Date of Service October 22, 2021 Assessment & Plan Chart Review Chart Review: Acceptable Risk for Surgery and Patient NOT seen in Pre Admission Testing Consults Requested none ASA ASA4 Proposed Anesthesia Anesthesia Type: General History Surgery Operation Date: 10/23/21 07:30 Proposed Procedures p Cardioversion - Presley Butterfield DO Height/Weight Height: 6 ft 1 in Weight: 103 kg Allergies Allergy/AdvReac Type Severity Reaction Status Date / Time walnut Allergy Intermediate MOUTH Verified 10/20/21 18:50 BURNING Medications Home Medications Medication Instructions Recorded Confirmed Last Taken atorvastatin 40 mg tablet 40 mg PO HS 03/06/20 10/20/21 10/19/21 finasteride 5 mg tablet 5 mg PO DAILY 03/06/20 10/20/21 10/20/21 isosorbide mononitrate 60 mg 60 mg PO DAILY 03/06/20 10/20/21 10/20/21 tablet,extended release 24 hr lisinopril 40 mg tablet 40 mg PO DAILY 03/06/20 10/20/21 10/20/21 omeprazole 20 mg capsule,delayed 20 mg PO HS 03/06/20 10/20/21 10/19/21 release sertraline 100 mg tablet 100 mg PO DAILY 03/06/20 10/20/21 10/20/21 sotalol 80 mg tablet See Rx Instructions .ROUTE .[facility] 03/06/20 10/20/21 10/20/21 08:00 spironolactone 25 mg tablet 25 mg PO DAILY 03/06/20 10/20/21 10/20/21 tamsulosin 0.4 mg capsule 0.4 mg PO DAILY 03/06/20 10/20/21 10/20/21 warfarin 10 mg tablet See Rx Instructions .ROUTE .[facility] 03/06/20 10/20/21 06/02/20 aspirin 81 mg tablet,delayed 81 mg PO DAILY 06/02/20 10/20/21 10/20/21 release cyanocobalamin (vitamin B-12) 3,000 mcg PO DAILY 06/02/20 10/20/21 10/20/21 1,000 mcg tablet (Vitamin B-12) fluticasone propionate 50 2 spray INTRANASAL DAILY PRN 06/02/20 10/20/21 Unknown mcg/actuation nasal spray,suspension multivitamin 1 tab PO DAILY 06/02/20 10/20/21 10/20/21 diphenhydramine 25 1 tab PO HS PRN 10/12/21 10/20/21 Unknown mg-acetaminophen 500 mg tablet (Tylenol PM Extra Strength) glucosamine-chondroitin 250 mg-200 2 tab PO DAILY 10/12/21 10/20/21 10/20/21 mg tablet (Osteo Bi-Flex) metformin 500 mg tablet 2,000 mg PO QPM 10/12/21 10/20/21 10/19/21 Active Medications Generic Name Dose Route Start Last Admin Trade Name Little PRN Reason Stop Dose Admin Amiodarone HCl 400 mg 10/22/21 08:00 10/22/21 16:56 Amiodarone 200 Mg Tab PO 11/21/21 07:59 400 mg TIDM CARLOS Administration Aspirin 81 mg 10/21/21 09:00 10/22/21 07:59 Aspirin 81 Mg Ectab PO 11/20/21 08:59 81 mg DAILY CARLOS Administration Atorvastatin Calcium 40 mg 10/20/21 21:41 10/22/21 19:18 Atorvastatin 40 Mg Tab PO 11/19/21 21:40 40 mg HS CARLOS Administration Cyanocobalamin 3,000 mcg 10/21/21 09:00 10/22/21 07:59 Cyanocobalamin (B-12) 500 Mcg Tablet PO 11/20/21 08:59 3,000 mcg DAILY CARLOS Administration Finasteride 5 mg 10/21/21 09:00 10/22/21 07:58 Finasteride 5 Mg Tab PO 11/20/21 08:59 5 mg DAILY CARLOS Administration Furosemide 40 mg 10/22/21 17:00 10/22/21 16:58 Furosemide 40 Mg Tab PO 11/21/21 16:59 40 mg [id number] CARLOS Administration Glucosamine Sulfate 500 mg 10/21/21 09:00 10/22/21 07:58 Glucosamine Sulfate 500 Mg Cap PO 11/20/21 08:59 500 mg DAILY CARLOS Administration Insulin Aspart 0 units 10/20/21 21:41 10/22/21 20:07 Insulin Aspart Per Unit SC 11/19/21 21:40 Not Given ACHS CARLOS Isosorbide Mononitrate 60 mg 10/21/21 09:00 10/22/21 08:00 Isosorbide Ashley Extended Rel 60 Mg Tabcr PO 11/20/21 08:59 60 mg DAILY CARLOS Administration Lisinopril 40 mg 10/21/21 09:00 10/22/21 07:59 Lisinopril 40 Mg Tab PO 11/20/21 08:59 40 mg DAILY CARLOS Administration Magnesium Oxide 400 mg 10/21/21 09:00 10/22/21 19:16 Magnesium Oxide 400 Mg Tab PO 11/20/21 08:59 400 mg BID CARLOS Administration Metoprolol Succinate 25 mg 10/22/21 21:00 10/22/21 19:17 Metoprolol Succ 25mg Ext Rel Tab PO 11/21/21 20:59 25 mg BID CARLOS Administration Multivitamins 1 tab 10/21/21 09:00 10/22/21 07:58 Multivitamin Tab PO 11/20/21 08:59 1 tab DAILY CARLOS Administration Pantoprazole Sodium 40 mg 10/20/21 21:41 10/22/21 19:16 Pantoprazole 40 Mg Tab PO 11/19/21 21:40 40 mg HS CARLOS Administration Potassium Chloride 20 meq 10/22/21 09:00 10/22/21 19:17 Potassium Chloride Crtab 20 Meq Tabcr PO 11/21/21 08:59 20 meq BID CARLOS Administration Sertraline HCl 100 mg 10/21/21 09:00 10/22/21 07:58 Sertraline Hcl 100 Mg Tablet PO 11/20/21 08:59 100 mg DAILY CARLOS Administration Spironolactone 25 mg 10/21/21 09:00 10/22/21 07:58 Spironolactone 25 Mg Tab PO 11/20/21 08:59 25 mg DAILY CARLOS Administration Tamsulosin HCl 0.4 mg 10/21/21 16:30 10/22/21 16:57 Tamsulosin Hcl 0.4 Mg Cap PO 11/20/21 16:29 0.4 mg DAILY@1630 CARLOS Administration Warfarin Sodium 10 mg 10/22/21 16:00 10/22/21 16:00 Warfarin Sod 10 Mg Tab PO 11/21/21 15:59 10 mg [email or web address] CARLOS Administration Warfarin Sodium 5 mg 10/21/21 16:00 10/21/21 17:16 Warfarin Sod 5 Mg Tab PO 11/20/21 15:59 5 mg [id number] CARLOS Administration Past Medical History Medical History Arthritis Atrial fibrillation BPH (benign prostatic hyperplasia) Coronary artery disease Depression Diabetes mellitus, type 2 Elevated prostate specific antigen (PSA) GERD (gastroesophageal reflux disease) History of cardioversion X 1 *4 YEARS AGO Hyperlipidemia Hypertension Myocardial infarction SILENT *8 YEARS AGO Neuropathy LOLA. FEET Sleep apnea NO DEVICE Spinal stenosis Exercise / Class Metabolic Activity III < 4 Walking/Shop/Light housework Past Family History Family History Mother Diabetes Cardiac disorder AMD (age related macular degeneration) Cancer Hypertension Father Diabetes Cardiac disorder Parkinson's disease Sister Rheumatoid arthritis Other No family history of adverse response to anesthesia Past Surgical History Surgical History H/O hernia repair History of cardiac cath MULT.>NO STENTS (LAST ONE 20 YEARS AGO) History of carpal tunnel release RT History of colonoscopy History of tooth extraction Hx of cataract surgery RT/LEFT Hx of knee surgery Hx of nasal septoplasty Past Anesthesia History No Hx of Anesthesia Complications and No Family Hx of Anesthesia Complications History of PONV No Hx of PONV and No Hx of Motion Sickness Social History Smoking Status: Never smoker Hx Alcohol Use: No alcohol intake frequency: holidays/special occasions only Hx Substance Use: No substance use type: does not use Physical Exam Vital Signs Last Vital Signs Temp 36.5 C 10/22/21 19:42 Pulse 96 H 10/22/21 19:42 Resp 18 10/22/21 19:42 BP 118/85 10/22/21 19:42 Pulse Ox 93 10/22/21 19:42 Testing Laboratory Results 10/21/21 05:28 10/22/21 05:36 PT 23.5 Seconds (9.0-12.0) H 10/22/21 05:36 INR 2.3 (0.9-1.1) H 10/22/21 05:36 APTT 30.8 Seconds (21.0-31.0) 10/20/21 17:24 Hemoglobin A1c 7.1 % (4.5-5.6) H 10/21/21 05:28 10/22/21 10/22/21 10/22/21 19:46 16:15 11:32 POC Glucose 135 H 144 H 129 H Electrocardiogram Date: 10/22/21 Findings: + AFIB @ (A Flutter at 122 w/ variable AV n) Echocardiogram Date: 10/21/21 EF: 25% LV Function: dysfunctional (severe LV dysfxn) RWMA: + hypokinetic Other Findings: + atrial enlargement (severe biatrial dilation) Valvular Disease: + AI (moderate), + MR (severe) and + pertinent finding (RV function moderately decreased)
--- NOTE | 2021-10-22 22:10 | Hospitalist Progress Note ---
Date of Service October 22, 2021 Assessment & Plan (1) Atrial flutter: Plan: Present on admission with worsening SOB EKG showed Atrial flutter with RVR Pt was started on Cardizem drip Cardiology on board Started on Amiodarone 400mg TID IV cardizem drip discontinued and continue off sotalol Continue Coumadin with INR 2.3 Cardiology plan to cardiovert tomorrow Will make NPO after midnight Continue monitor closely in telemetry Acute systolic CHF Possible due to tachycardia induced cardiomyopathy from the atrial flutter with RVR CXR showed no evidence for pleural effusion or vascular congestion. ECHO showed LA and RV is severely dilated with EF 25-30 Continue spironolactone 25mg and lasix 40mg IV bid Monitor BMP while on IV diuretic Continue monitor closely Hypomagnesemia Mg 1.7 today Continue monitor electrolytes Hypertension: Continue his lisinopril, Imdur, and spironolactone. Continue monitor blood pressure. CAD Continue his home medications of Imdur, lisinopril, statin, and aspirin. Depression Continue sertraline. Diabetes Most recent hab1c 7.1 Continue to hold metformin. Continue novolog sliding scale GERD Continue his omeprazole. Benign prostatic hypertrophy: Continue his finasteride. Hyperlipidemia: Continue his statin. Sleep apnea. Not using cpap or oxygen. Deep venous thrombosis prophylaxis: On Coumadin with INR therapeutic. Code status Full code Admission and Anticipated Discharge Date Admission Date: October 20, 2021 Subjective Pt was seen and examined for follow up of SOB and atrial flutter Lying in bed with no acute distress He said that his breathing is getting better Denies any chest pain, palpitation, dizziness and SOB Review of Systems Review of Systems: All systems reviewed & are unremarkable except as noted in Subjective Physical Exam Physical Exam: General- No acute distress Head- atraumatic Eyes- PERRL, EOMI, ENT- oropharynx clear Neck- supple, no JVD Lungs- clear to auscultation Heart- regular rhythm; +systolic murmur Abdomen- normal bowel sounds, soft, nontender Extremities- no calf tenderness, +edema Neuro- alert, oriented x 3; PERRL, EOMI; no facial palsy; no dysarthria Skin- warm & dry Results & Data Results & Data ([facility]) Vital Signs (Past 12 Hours) Vital Signs Temp Pulse Pulse Resp BP Pulse Ox 10/22/21 19:42 36.5 C 96 H 18 118/85 93 10/22/21 16:01 36.7 C 119 H 20 117/85 93 10/22/21 11:47 36.6 C 122 H 18 115/84 94 (1) Atrial flutter Atrial flutter type: unspecified Qualified Code(s): I48.92 - Unspecified atrial flutter
[2021-10-22] MEDS: SODIUM CHLORIDE 0.9% 1000ML 1,000 ML IV SCH (23:49)
[2021-10-23] MEDS ORDERED: PROPOFOL IV EMULSION 10 MG/ML 20 ML VIAL IV ONE (07:13)
[2021-10-23] MEDS ORDERED: LIDOCAINE 2% 2 ML VIAL/AMP(20MG/ML) INFIL ONE (07:13)
--- NOTE | 2021-10-23 07:35 | Cardiology Progress Note ---
Date of Service October 23, 2021 Assessment & Plan (1) Atrial flutter: (2) Biventricular heart failure: (3) CAD (coronary artery disease): Plan: Patient admitted for recurrent symptomatic atrial flutter with RVR and acute decompensated systolic HF in the setting of elevated heart rates. Volume status improved with IV Lasix since admission, now on PO He remains in persistent atrial flutter, previously on sotalol (wash out complete), now on amiodarone. S/p DCCV 10/23/2021 to NSR. Inpatient echo demonstrated biventricular heart failure with severely reduced LVEF at 25%. Its possible this is a result of tachy-induced cardiomyopathy as he has had persistently elevated rates over the last several months. He has no anginal symptoms and troponin is not elevated. He does have a history of underlying multivessel CAD in 2005, managed medically. We discussed atrial flutter in great detail as well has systolic heart failure. Made him aware that many medication changes will be made to improve his heart rates and his LV systolic function. Will need to titrate GDMT aggressively. Recommendations: 1. Continue ASA, atorvastatin, isosorbide, lisinopril. 2. Continue metoprolol succinate 25 mg BID 3. Consider transitioning from Lisinopril to Entresto as an outpatient 4. Continue Spironolactone 25 mg BID 5. Continue Lasix 40 mg BID for now (not normally on loop diuretic as an out patient, may require diuretics now due to reduced EF). At discharge reduce Lasix to 40 mg daily. Case discussed with Dr. Butterfield. Will continue to follow. Planning on keeping patient one more night to continue amiodarone load and hopefully discharge tomorrow. I will arrange for cardio follow up in office in 2 weeks post discharge. Admission and Anticipated Discharge Date Admission Date: October 20, 2021 Supervising Physician Co-Signing Physician Notes I have seen and examined the patient. I reviewed the medical record and discussed the case with the [employer]. He is maintaining sinus rhythm. The plan will be continue the amiodarone load through today. If the patient is stable tomorrow then he can be discharged. Subjective Chart and telemetry reviewed. Yesterday- Volume status improving on IV Lasix. Sotalol washout initiated and patient was started on Amiodarone 10/23. GDMT with metoprolol succinate and increased to 25 mg BID. EP consulted previously- case reviewed with Dr. Cage, Underwent successful DCCV (x1 300 J of biphasic energy) this am and converted to NSR with Dr. Butterfield. Inpatient Echo showed a dilated cardiomyopathy, possibly tachycardic induced. LVEF 25-30%. Renal function stable, potassium low normal. Upon entrance into the room patient resting comfortably in bed. Denies any acute concerns. No chest pain, shortness of breath, no palpitations, dizziness of syncope. Tele: Aflutter 120s overnight s/p DCCV to NSR, now with rates of 80-90s I&O: +1.5L Weight: 132kg >> 124.5kg INR: 2.3 (10/22) Review of Systems Review of Systems: All systems reviewed & are unremarkable except as noted in HPI & below Physical Exam Constitutional: WD/WN, vitals as above well nourished; no acute distress Eyes: PERRL, conjunctivae normal, anicteric sclerae ENMT: external ear and nose normal, oropharynx normal Respiratory: normal respiratory effort, lungs clear to auscultation Cardiovascular: Rate/Rhythm: regular rate and regular rhythm Heart Sounds: + murmur (II/ systolic murmur) Vessels: no JVD Extremities: + edema (BLLE +1 ) Gastrointestinal (Abdomen): normal bowel sounds, soft, nontender, no hepatosplenomegaly Musculoskeletal: no cyanosis or clubbing, extremities motor strength 5/5 Neurologic: PERRL, EOMI, accommodation nl, no face palsy, no dysarthria Psychiatric: A+Ox3, euthymic affect Results & Data ([facility]) Vital Signs (Past 12 Hours) Vital Signs Temp Pulse Pulse Pulse Resp BP BP 10/23/21 03:34 36.8 C 114 H 18 117/82 10/22/21 23:32 36.9 C 114 H 18 119/78 10/22/21 23:21 115 H 10/22/21 19:42 36.5 C 96 H 18 118/85 Pulse Ox 10/23/21 03:34 93 10/22/21 23:32 92 10/22/21 23:21 10/22/21 19:42 93 Laboratory Results 10/23/21 10/23/21 10/23/21 Range/Units 08:16 08:16 08:10 PT 23.0 H (9.0-12.0) Seconds INR 2.3 H (0.9-1.1) Sodium 141 (136-145) mmol/L Potassium 3.8 (3.5-5.1) mmol/L Chloride 106 (98-107) mmol/L Carbon Dioxide 28 (21-32) mmol/L Anion Gap 7 (3-11) BUN 14 (6-23) mg/dl Creatinine 0.86 (0.6-1.4) mg/dl Est Cr Clr Drug Dosing 107.3 ml/min Est GFR ( Amer) 100.4 ml/min Est GFR (Non-Af Amer) 86.6 ml/min BUN/Creatinine Ratio 16.3 (10-20) Glucose 116 H (70-99(Fasting)) mg/dl POC Glucose 121 H (70-99) mg/dl Calcium 8.1 L (8.5-10.1) mg/dl Magnesium 1.7 (1.7-2.4) mg/dl 10/22/21 10/22/21 10/22/21 Range/Units 19:46 16:15 11:32 PT (9.0-12.0) Seconds INR (0.9-1.1) Sodium (136-145) mmol/L Potassium (3.5-5.1) mmol/L Chloride (98-107) mmol/L Carbon Dioxide (21-32) mmol/L Anion Gap (3-11) BUN (6-23) mg/dl Creatinine (0.6-1.4) mg/dl Est Cr Clr Drug Dosing ml/min Est GFR ( Amer) ml/min Est GFR (Non-Af Amer) ml/min BUN/Creatinine Ratio (10-20) Glucose (70-99(Fasting)) mg/dl POC Glucose 135 H 144 H 129 H (70-99) mg/dl Calcium (8.5-10.1) mg/dl Magnesium (1.7-2.4) mg/dl (1) Atrial flutter Atrial flutter type: unspecified Qualified Code(s): I48.92 - Unspecified atrial flutter
--- NOTE | 2021-10-23 07:37 | Cardioversion ---
Date of Service October 23, 2021 Electrical Cardioversion Rpt Electrical Cardioversion Report After informed consent was obtained the patient was given sedation by anesthesia. The patient was then cardioverted using 300 J of biphasic energy to normal sinus rhythm. Patient tolerated the procedure well and was returned to his room in stable condition.
[2021-10-23] MEDS: AMIODARONE 200 MG TAB PO SCH ×3 (07:55→16:51)
[2021-10-23] MEDS: lisinopril 40 MG TAB PO SCH (08:21)
[2021-10-23] MEDS: FINASTERIDE 5 MG TAB PO SCH (08:21)
[2021-10-23] MEDS: MAGNESIUM OXIDE 400 MG TAB PO SCH ×2 (08:21→19:50)
[2021-10-23] MEDS: METOPROLOL SUCC 25MG EXT REL TAB PO SCH ×2 (08:21→19:51)
[2021-10-23] MEDS: ASPIRIN 81 MG ECTAB PO SCH (08:22)
[2021-10-23] MEDS: MULTIVITAMIN TAB PO SCH (08:22)
[2021-10-23] MEDS: CYANOCOBALAMIN (B-12) 500 MCG TABLET PO SCH (08:23)
[2021-10-23] MEDS: FUROSEMIDE 40 MG TAB PO SCH ×2 (08:25→16:52)
[2021-10-23] MEDS: SPIRONOLACTONE 25 MG TAB PO SCH (08:26)
[2021-10-23] MEDS: ISOSORBIDE MONO EXTENDED REL 60 MG TABCR PO SCH (08:26)
[2021-10-23] MEDS: GLUCOSAMINE SULFATE 500 MG CAP PO SCH (08:26)
[2021-10-23] MEDS: POTASSIUM CHLORIDE CRTAB 20 MEQ TABCR PO SCH ×2 (08:26→19:51)
[2021-10-23] MEDS: SERTRALINE HCL 100 MG TABLET PO SCH (08:26)
[2021-10-23 08:46] LABS: INR 2.3 (0.9-1.1)
[2021-10-23 09:07] LABS: BUN Creatinine Ratio 16.3 (10-20); Calcium 8.1 mg/dl (8.5-10.1); Creatinine Clr Calc Pharmacy 107.3 ml/min; Est GFR (African American) 100.4 ml/min; Est GFR (Non-African American) 86.6 ml/min; Magnesium 1.7 mg/dl (1.7-2.4); Potassium 3.8 mmol/L (3.5-5.1)
--- NOTE | 2021-10-23 09:32 | Anesthesiology Progress Note ---
Date of Service October 23, 2021 Anesthesia Post Procedure Vital Signs Vital Signs: Temp Pulse Pulse Pulse Pulse Resp BP 10/23/21 08:17 36.6 C 85 15 10/23/21 07:55 84 18 131/87 10/23/21 07:40 77 18 105/78 10/23/21 07:39 113 H 10/23/21 03:34 36.8 C 114 H 18 10/22/21 23:32 36.9 C 114 H 18 119/78 10/22/21 23:21 115 H 10/22/21 19:42 36.5 C 96 H 18 118/85 10/22/21 16:01 36.7 C 119 H 20 117/85 10/22/21 11:47 36.6 C 122 H 18 115/84 BP Pulse Ox 10/23/21 08:17 115/84 95 10/23/21 07:55 96 10/23/21 07:40 98 10/23/21 07:39 10/23/21 03:34 117/82 93 10/22/21 23:32 92 10/22/21 23:21 10/22/21 19:42 93 10/22/21 16:01 93 10/22/21 11:47 94 Transfer of Care Handoff Completed per policy Notes Mental Status: alert / awake / arousable and participated in evaluation Patient Amnestic to Procedure: Yes Nausea / Vomiting: adequately controlled Pain: adequately controlled Airway Patency, RR, SpO2: stable & adequate BP & HR: stable & adequate Hydration State: stable & adequate Anesthetic Complications: no major complications apparent and Pt Satisfied with anesthetic care
[2021-10-23] MEDS: INSULIN ASPART PER UNIT SC SCH ×4 (09:57→19:48)
[2021-10-23] MEDS: SODIUM CHLORIDE 0.9% 1000ML 1,000 ML IV SCH (12:56)
--- NOTE | 2021-10-23 16:10 | Hospitalist Progress Note ---
Date of Service October 23, 2021 Assessment & Plan (1) Atrial flutter: Plan: Present on admission with worsening SOB EKG showed Atrial flutter with RVR Pt was started on Cardizem drip Cardiology on board Continue Amiodarone 400mg TID IV cardizem drip discontinued and continue off sotalol Continue Coumadin with INR 2.3 S/P cardioversion and successfully back to NSR Continue monitor closely in telemetry Acute systolic CHF Possible due to tachycardia induced cardiomyopathy from the atrial flutter with RVR CXR showed no evidence for pleural effusion or vascular congestion. ECHO showed LA and RV is severely dilated with EF 25-30 Continue spironolactone 25mg IV lasix changed to 40mg PO BID Continue monitor BMP Continue monitor closely Hypomagnesemia Mg 1.7 today Continue monitor electrolytes Hypertension: Continue his lisinopril, Imdur, and spironolactone. Continue monitor blood pressure. CAD Continue his home medications of Imdur, lisinopril, statin, and aspirin. Depression Continue sertraline. Diabetes Most recent hab1c 7.1 Continue to hold metformin. Continue novolog sliding scale GERD Continue his omeprazole. Benign prostatic hypertrophy: Continue his finasteride. Hyperlipidemia: Continue his statin. Sleep apnea. Not using cpap or oxygen. Deep venous thrombosis prophylaxis: On Coumadin with INR therapeutic. Code status Full code Admission and Anticipated Discharge Date Admission Date: October 20, 2021 Subjective Pt was seen and examined for follow up of SOB and atrial flutter Lying in bed with no acute distress This morning pt was cardioverted and converted back to NSR He said that his breathing is alot better Denies any chest pain, palpitation, dizziness and SOB Review of Systems Review of Systems: All systems reviewed & are unremarkable except as noted in Subjective Physical Exam Physical Exam: General- No acute distress Head- atraumatic Eyes- PERRL, EOMI, ENT- oropharynx clear Neck- supple, no JVD Lungs- clear to auscultation Heart- regular rhythm; +systolic murmur Abdomen- normal bowel sounds, soft, nontender Extremities- no calf tenderness, No edema Neuro- alert, oriented x 3; PERRL, EOMI; no facial palsy; no dysarthria Skin- warm & dry Results & Data Results & Data ([facility]) Vital Signs (Past 12 Hours) Vital Signs Temp Pulse Pulse Resp BP BP Pulse Ox 10/23/21 15:08 90 10/23/21 14:56 36.5 C 87 16 122/84 93 10/23/21 11:41 36.5 C 89 15 105/71 93 10/23/21 08:17 36.6 C 85 15 115/84 95 10/23/21 07:55 84 18 131/87 96 10/23/21 07:40 77 18 105/78 98 10/23/21 07:39 113 H (1) Atrial flutter Atrial flutter type: unspecified Qualified Code(s): I48.92 - Unspecified atrial flutter
[2021-10-23] MEDS: WARFARIN SOD 5 MG TAB PO SCH (16:50)
[2021-10-23] MEDS: TAMSULOSIN HCL 0.4 MG CAP PO SCH (16:50)
[2021-10-23] MEDS: PANTOprazole 40 MG TAB PO SCH (19:51)
[2021-10-23] MEDS: ATORVASTATIN 40 MG TAB PO SCH (19:51)
[2021-10-24 06:01] LABS: INR 2.3 (0.9-1.1); Prothrombin Time 23.5 Seconds (9.0-12.0)
[2021-10-24 06:22] LABS: BUN Creatinine Ratio 18.1 (10-20); Calcium 9.4 mg/dl (8.5-10.1); Est GFR (African American) 93.5 ml/min; Est GFR (Non-African American) 80.7 ml/min; Potassium 3.9 mmol/L (3.5-5.1)
[2021-10-24] MEDS: INSULIN ASPART PER UNIT SC SCH (07:51)
[2021-10-24] MEDS: AMIODARONE 200 MG TAB PO SCH (07:53)
[2021-10-24] MEDS: CYANOCOBALAMIN (B-12) 500 MCG TABLET PO SCH (08:05)
[2021-10-24] MEDS: FINASTERIDE 5 MG TAB PO SCH (08:06)
[2021-10-24] MEDS: FUROSEMIDE 40 MG TAB PO SCH (08:06)
[2021-10-24] MEDS: ISOSORBIDE MONO EXTENDED REL 60 MG TABCR PO SCH (08:06)
[2021-10-24] MEDS: GLUCOSAMINE SULFATE 500 MG CAP PO SCH (08:07)
[2021-10-24] MEDS: MAGNESIUM OXIDE 400 MG TAB PO SCH (08:07)
[2021-10-24] MEDS: lisinopril 40 MG TAB PO SCH (08:07)
[2021-10-24] MEDS: METOPROLOL SUCC 25MG EXT REL TAB PO SCH (08:07)
[2021-10-24] MEDS: SERTRALINE HCL 100 MG TABLET PO SCH (08:08)
[2021-10-24] MEDS: MULTIVITAMIN TAB PO SCH (08:08)
[2021-10-24] MEDS: SPIRONOLACTONE 25 MG TAB PO SCH (08:08)
[2021-10-24] MEDS: POTASSIUM CHLORIDE CRTAB 20 MEQ TABCR PO SCH (08:08)
[2021-10-24] MEDS: ASPIRIN 81 MG ECTAB PO SCH (08:13)
--- NOTE | 2021-10-24 09:24 | Cardiology Progress Note ---
Date of Service October 24, 2021 Assessment & Plan (1) Atrial flutter: (2) Biventricular heart failure: (3) CAD (coronary artery disease): Plan: The patient is maintaining sinus rhythm. I believe he is currently stable enough to be discharged. I will arrange follow-up through our clinic. He will need an INR as an outpatient through the [facility] as we are adjusting his amiodarone. Lasix can be decreased to 40 mg daily. He can be discharged on amiodarone 200 mg twice daily. Admission and Anticipated Discharge Date Admission Date: October 20, 2021 Subjective The patient is doing well and has no new complaints today. Review of Systems Review of Systems: Review of Systems: See HPI for pertinent positives. All other 10 point review of systems are negative. Physical Exam Physical Exam: General: no acute distress and stated age Head: normocephalic, no masses, lesions, tenderness or abnormalities Eyes: conjunctiva are pink and non-injected, sclera clear Neck: supple, no adenopathy, no bruits, normal jugular venous pulse, no hepatojugular reflux Chest: normal shape and normal respiratory effort Lungs: clear to auscultation and percussion Cardiac Exam: - regular rate & rhythm, no murmurs gallops or rubs - normal S1, normal S2 Pulses: 2(+) throughout Abdomen: abdomen soft, non-tender, no abnormal masses and no hepatosplenomegaly Musculoskeletal: no gait disturbance, no joint inflammation, no deforming arthritis Extremities: no edema and no cyanosis Neuro: grossly normal exam Results & Data ([facility]) Vital Signs (Past 12 Hours) Vital Signs Temp Pulse Pulse Pulse Resp BP BP 10/24/21 08:02 37.0 C 86 16 124/64 10/24/21 04:29 36.5 C 84 18 111/76 10/24/21 00:00 88 10/23/21 23:28 36.8 C 89 16 118/82 Pulse Ox 10/24/21 08:02 95 10/24/21 04:29 93 10/24/21 00:00 10/23/21 23:28 93 Laboratory Results Laboratory Results - last 24 hr 10/23/21 10/23/21 10/23/21 10:51 16:30 19:36 PT INR Sodium Potassium Chloride Carbon Dioxide Anion Gap BUN Creatinine Est Cr Clr Drug Dosing Est GFR ( Amer) Est GFR (Non-Af Amer) BUN/Creatinine Ratio Glucose POC Glucose 220 H 113 H 112 H Calcium 10/24/21 10/24/21 10/24/21 05:25 05:25 07:39 PT 23.5 H INR 2.3 H Sodium 139 Potassium 3.9 Chloride 105 Carbon Dioxide 27 Anion Gap 7 BUN 17 Creatinine 0.94 Est Cr Clr Drug Dosing 98.0 Est GFR ( Amer) 93.5 Est GFR (Non-Af Amer) 80.7 BUN/Creatinine Ratio 18.1 Glucose 115 H POC Glucose 116 H Calcium 9.4 Medications Administered Current Inpatient Medications Acetaminophen (Acetaminophen 325 Mg Tab) 650 mg PO Q4H PRN PRN Reason: Pain or Fever Stop: 11/19/21 21:40 Acetaminophen (Acetaminophen 500 Mg Tab) 500 mg PO HS PRN PRN Reason: Sleep Stop: 11/19/21 21:56 Amiodarone HCl (Amiodarone 200 Mg Tab) 200 mg PO BIDM CARLOS Stop: 11/23/21 16:59 Aspirin (Aspirin 81 Mg Ectab) 81 mg PO DAILY CARLOS Stop: 11/20/21 08:59 Last Admin: 10/24/21 08:13 Dose: 81 mg Documented by: Atorvastatin Calcium (Atorvastatin 40 Mg Tab) 40 mg PO HS CARLOS Stop: 11/19/21 21:40 Last Admin: 10/23/21 19:51 Dose: 40 mg Documented by: Cyanocobalamin (Cyanocobalamin (B-12) 500 Mcg Tablet) 3,000 mcg PO DAILY CARLOS Stop: 11/20/21 08:59 Last Admin: 10/24/21 08:05 Dose: 3,000 mcg Documented by: Diphenhydramine HCl (Diphenhydramine Capsule 25 Mg Cap) 25 mg PO HS PRN PRN Reason: Sleep Stop: 11/19/21 21:56 Finasteride (Finasteride 5 Mg Tab) 5 mg PO DAILY CARLOS Stop: 11/20/21 08:59 Last Admin: 10/24/21 08:06 Dose: 5 mg Documented by: Fluticasone Propionate (Fluticasone Propionate Na Spr 16 Gm Btl) 2 sprays NA DAILY PRN PRN Reason: Nasal Congestion Stop: 11/19/21 21:40 Furosemide (Furosemide 40 Mg Tab) 40 mg PO BID17 CARLOS Stop: 11/21/21 16:59 Last Admin: 10/24/21 08:06 Dose: 40 mg Documented by: Glucosamine Sulfate (Glucosamine Sulfate 500 Mg Cap) 500 mg PO DAILY [facility] Stop: 11/20/21 08:59 Last Admin: 10/24/21 08:07 Dose: 500 mg Documented by: Insulin Aspart (Insulin Aspart Per Unit) 0 units SC ACHS CARLOS Stop: 11/19/21 21:40 Last Admin: 10/24/21 07:51 Dose: Not Given Documented by: Isosorbide Mononitrate (Isosorbide [place] Extended Rel 60 Mg Tabcr) 60 mg PO DAILY CARLOS Stop: 11/20/21 08:59 Last Admin: 10/24/21 08:06 Dose: 60 mg Documented by: Lisinopril (Lisinopril 40 Mg Tab) 40 mg PO DAILY [facility] Stop: 11/20/21 08:59 Last Admin: 10/24/21 08:07 Dose: 40 mg Documented by: Magnesium Oxide (Magnesium Oxide 400 Mg Tab) 400 mg PO BID CARLOS Stop: 11/20/21 08:59 Last Admin: 10/24/21 08:07 Dose: 400 mg Documented by: Metoprolol Succinate (Metoprolol Succ 25mg Ext Rel Tab) 25 mg PO BID [facility] Stop: 11/21/21 20:59 Last Admin: 10/24/21 08:07 Dose: 25 mg Documented by: Multivitamins (Multivitamin Tab) 1 tab PO DAILY CARLOS Stop: 11/20/21 08:59 Last Admin: 10/24/21 08:08 Dose: 1 tab Documented by: Nitroglycerin (Nitroglycerin Sl 0.4 Mg/Tab Tab) 0.4 mg SL Q5M PRN PRN Reason: Chest Pain Stop: 11/19/21 21:40 Pantoprazole Sodium (Pantoprazole 40 Mg Tab) 40 mg PO HS [facility] Stop: 11/19/21 21:40 Last Admin: 10/23/21 19:51 Dose: 40 mg Documented by: Polyethylene Glycol (Polyethylene (Miralax) 17 Gm Pack) 17 gm PO DAILY PRN PRN Reason: Constipation Stop: 11/19/21 21:40 Potassium Chloride (Potassium Chloride Crtab 20 Meq Tabcr) 20 meq PO BID CARLOS Stop: 11/21/21 08:59 Last Admin: 10/24/21 08:08 Dose: 20 meq Documented by: Sertraline HCl (Sertraline Hcl 100 Mg Tablet) 100 mg PO DAILY [facility] Stop: 11/20/21 08:59 Last Admin: 10/24/21 08:08 Dose: 100 mg Documented by: Spironolactone (Spironolactone 25 Mg Tab) 25 mg PO DAILY [facility] Stop: 11/20/21 08:59 Last Admin: 10/24/21 08:08 Dose: 25 mg Documented by: Tamsulosin HCl (Tamsulosin Hcl 0.4 Mg Cap) 0.4 mg PO DAILY@1630 [facility] Stop: 11/20/21 16:29 Last Admin: 10/23/21 16:50 Dose: 0.4 mg Documented by: Warfarin Sodium (Warfarin Sod 10 Mg Tab) 10 mg PO TuThSa@1600 [facility] Stop: 11/21/21 15:59 Last Admin: 10/22/21 16:00 Dose: 10 mg Documented by: Warfarin Sodium (Warfarin Sod 5 Mg Tab) 5 mg PO SuMoWeFr@1600 [facility] Stop: 11/20/21 15:59 Last Admin: 10/23/21 16:50 Dose: 5 mg Documented by: (1) Atrial flutter Atrial flutter type: unspecified Qualified Code(s): I48.92 - Unspecified atrial flutter
--- NOTE | 2021-10-24 11:12 | Discharge Summary ---
Date of Service October 24, 2021 Admission HPI Per Admitting Provider CHIEF COMPLAINT: Rapid AFib. HISTORY OF PRESENT ILLNESS: This is a 71-year-old male with past medical history significant for hyperlipidemia, diabetes, sleep apnea, hypertrophy of both inferior nasal turbinates, CAD, paroxysmal atrial fibrillation, atrial flutter, hypertension, GERD, obesity, BPH, depression, hypothyroidism, who had multiple cardioversions in the past, one of which was recently done on 10/13/2021. Went to Cardiology office today complaining increasing shortness of breath and lower extremity edema and also palpitations. Currently resting comfortably. Somewhat tachycardic. Denies any chest pain, getting short of breath on exertion. Denies any headache. No blurred visions, no earache. Has runny nose from his sinuses, sore throat from his sinuses. No cough, no fevers. Appetite is okay. No difficulty swallowing. No nausea, no abdominal pain. Normal bowel and bladder movements. Denies any blood in stool or black stools. Admission Exam Per Admitting Provider GENERAL: The patient is obese, not in acute distress. VITAL SIGNS: Temperature afebrile, pulse 118, respiratory rate 18, blood pressure 130/105, oxygen 97% on room air. HEENT: Pupils equal, round and reactive to light. Oral mucosa moist. NECK: No JVD, no neck masses. CARDIOVASCULAR: S1 and S2 heard. Regular rhythm, tachycardia. No murmurs. RESPIRATORY SYSTEM: Normal AP diameter. Mild wheezing. Occasional crackles. ABDOMEN: Soft, bowel sounds present, nontender, no distention. CENTRAL NERVOUS SYSTEM: Cranial nerves II-XII grossly intact, nonfocal. EXTREMITIES: Bilateral lower extremity, +2 edema present, no erythema seen. Principal Diagnosis Atrial flutter Acute systolic congestive heart failure Hypomagnesemia Hypertension: Coronary Artery Disease Diabetes Benign prostatic hypertrophy: Sleep apnea. Discharge Exam General- No acute distress Head- atraumatic Eyes- PERRL, EOMI, ENT- oropharynx clear Neck- supple, no JVD Lungs- clear to auscultation Heart- regular rhythm; +systolic murmur Abdomen- normal bowel sounds, soft, nontender Extremities- no calf tenderness, No edema Neuro- alert, oriented x 3; PERRL, EOMI; no facial palsy; no dysarthria Skin- warm & dry Discharge Data Allergies Allergy/AdvReac Type Severity Reaction Status Date / Time walnut Allergy Intermediate MOUTH Verified 10/20/21 18:50 BURNING Consultations 10/20/21 19:10 ED Decision to Admit Stat 10/21/21 08:00 Consult Cardiology Routine 10/22/21 13:16 Consult Anesthesiology Routine Procedures Performed Operation Date: 10/23/21 07:30 Actual Procedures p Cardioversion - Presley Butterfield, DO Ordered Studies XR chest 1V portable CLINICAL HISTORY: Chest Pain. COMPARISON STUDY: 03/24/2016 TECHNIQUE: 1 view of the chest FINDINGS: Single frontal view of the chest demonstrates the heart to be mildly enlarged which is probably accentuated by the decreased inspiratory effort. There is a decreased inspiratory effort with elevation of the hemidiaphragms and crowding of the bronchovascular markings at the lung bases and centrally. The lungs are clear of alveolar opacities. There is no evidence for pleural effusion. There is no evidence for vascular congestion. There is no acute osseous pathology. IMPRESSION: 1. There is a decreased inspiratory effort with otherwise no acute chest disease. ACT 112: Negative or not required by law. Electronically signed by: Kishore Riggs M.D. 10/20/2021 5:08 PM Dictated:10/20/211706 Transcribed: 10/20/211706 Hospital Course (1) Atrial flutter: Present on admission with worsening SOB EKG showed Atrial flutter with RVR Pt was started on Cardizem drip Sotalol discontinued Cardiology on board Continue Amiodarone 400mg TID IV cardizem drip discontinued and continue off sotalol Continue Coumadin with INR 2.3 S/P cardioversion and successfully back to NSR Continue monitor closely in telemetry Ok from cardiology standpoint to discharge home today New medication Amiodarone 200mg twice a day Lasix 40mg daily Metoprolol 25 mg twice a day Magnesium 400mg twice day Potassium 20mg daily Acute systolic CHF Possible due to tachycardia induced cardiomyopathy from the atrial flutter with RVR CXR showed no evidence for pleural effusion or vascular congestion. ECHO showed LA and RV is severely dilated with EF 25-30 Continue spironolactone 25mg IV lasix changed to 40mg PO BID Will transition to PO lasix 40mg daily Check BMP in 1 week to monitor electrolytes and creatinine Continue monitor closely Hypomagnesemia Mg 1.7 today Continue magnesium supplement Check Magnesium level in 1 week Hypertension: Continue his lisinopril, Imdur, and spironolactone. Continue monitor blood pressure. CAD Continue his home medications of Imdur, lisinopril, statin, and aspirin. Depression Continue sertraline. Diabetes Most recent hab1c 7.1 Continue to hold metformin. Continue novolog sliding scale GERD Continue his omeprazole. Benign prostatic hypertrophy: Continue his finasteride. Hyperlipidemia: Continue his statin. Sleep apnea. Not using cpap or oxygen. Deep venous thrombosis prophylaxis: On Coumadin with INR therapeutic. Code status Full code Total Time Total Time Spent Total Time Spent (In Minutes): 35 minutes Discharge Plan Discharge Items Patient Disposition: Home - Self-Care Reason For Visit: AFIB, SWELLING AND FLUID BUILD UP, ABORMAL EKG Discharge Diagnosis: Atrial flutter Acute systolic congestive heart failure Hypomagnesemia Hypertension: Coronary Artery Disease Diabetes Benign prostatic hypertrophy: Sleep apnea. Activity: Resume your previous activity Non-emergency contact: Primary Care Provider Call non-emergency contact if: you have any medication questions Follow-up/Referrals: Deangelo Bashir MD [Primary Care Provider] - Diet: Carb Consistent or DM2, Heart Healthy and Low Sodium (2gm) Addtl Attending Provider Instructions: Follow up with primary care provider Kody BARONE (Dr. Bashir's colleague) on 10/26 at 8:05 AM Follow up with your cardiology Dr Shields on 10/30 @ 9:45 AM Follow up with the coumadin clinic next week to monitor your PT/INR Since your are taking amiodarone that can alter your INR level, please check PT/INR in the next few days Since you are taking Lasix 40mg daily, please check BMP in 1 week to monitor your electrolytes and renal function (your provider will order it at your next appointment) Check Magnesium level in 1 week (your provider will order it at your next appointment) Follow a healthy diet with low sodium and limited concentrating sweet Sotalol discontinued New medication Amiodarone 200mg twice a day Lasix 40mg daily Metoprolol 25 mg twice a day Magnesium 400mg twice day Potassium 20mg daily CHF Discharge Instructions Call your Primary Care doctor if any of the following symptoms or problems start or get worse: Shortness of breath or difficulty breathing Wake up at night short of breath Chest pain Cough Swelling of your hands, feet, or legs More fatigued or tired with your normal activity Palpitations - sudden fast heart beats WEIGHT Weigh yourself every morning after using the bathroom. Use the same scale. Wear the same amount of clothing. Write your weight down on a chart. Call your Primary Care doctor if you gain more than 2-3 pounds in 1-2 days. MEDICATIONS Use this discharge instruction sheet for medication instructions. Take your medications at the time your doctor ordered. Do not skip a dose of your medicines. If you miss a dose of medicine, take it as soon as possible, but DO NOT DOUBLE A DOSE. Read your medicine information when you get home. Know all of the side effects of your medicine. If in doubt, ask your pharmacist Call your Primary Care doctor's office if you have any side effects. Be sure all of your doctors know what medicine and herbs you take (including cold, flu, and herbal medicine). Take the following with you to your follow-up doctor appointments: Weight Chart Medication List List of questions Do not drink excessive alcohol, beer or wine. Pending Studies at Discharge: No Stand-Alone Forms: My [facility]orb, Smoking Cessation Medications and DC Order Prescriptions: New furosemide 40 mg Tablet 40 mg PO DAILY 30 Days Qty: 30 RF: 0 amiodarone 200 mg Tablet 200 mg PO BIDM 30 Days Qty: 60 RF: 0 potassium chloride 20 mEq Tablet,Er Particles/Crystals 20 meq PO DAILY 30 Days Qty: 30 RF: 0 magnesium oxide 400 mg (241.3 mg magnesium) Tablet 400 mg PO BID 30 Days Qty: 60 RF: 0 metoprolol succinate 25 mg Tablet Extended Release 24 Hr 25 mg PO BID 30 Days Qty: 60 RF: 0 Continued finasteride 5 mg tablet 5 mg PO DAILY RF: 0 omeprazole 20 mg capsule,delayed release(DR/EC) 20 mg PO HS RF: 0 tamsulosin 0.4 mg capsule 0.4 mg PO DAILY RF: 0 isosorbide mononitrate 60 mg tablet extended release 24 hr 60 mg PO DAILY RF: 0 spironolactone 25 mg tablet 25 mg PO DAILY RF: 0 warfarin 10 mg tablet See Rx Instructions .ROUTE .COMPLEX RF: 0 atorvastatin 40 mg tablet 40 mg PO HS RF: 0 lisinopril 40 mg tablet 40 mg PO DAILY RF: 0 sertraline 100 mg tablet 100 mg PO DAILY RF: 0 multivitamin Tablet 1 tab PO DAILY RF: 0 cyanocobalamin (vitamin B-12) [Vitamin B-12] 1,000 mcg Tablet 3,000 mcg PO DAILY RF: 0 aspirin 81 mg Tablet,Delayed Release (Dr/Ec) 81 mg PO DAILY RF: 0 fluticasone propionate 50 mcg/actuation [place],Suspension 2 spray INTRANASAL DAILY PRN (Reason: Nasal Congestion) RF: 0 diphenhydramine-acetaminophen [Tylenol PM Extra Strength] 25-500 mg Tablet 1 tab PO HS PRN (Reason: Sleep) RF: 0 glucosamine-chondroitin [Osteo Bi-Flex] 250-200 mg Tablet 2 tab PO DAILY RF: 0 metformin 500 mg Tablet 2,000 mg PO QPM RF: 0 Discontinued sotalol 80 mg tablet See Rx Instructions .ROUTE .COMPLEX RF: 0 Discharge Orders: Discharge Order (Routine); Ordered 10/24/21 Ordered By: Pankaj Guy/Other Patient Handouts: Managing Type 2 Diabetes, Diabetes: Meal Planning Admission Data Admit Date/Time: 10/20/21 20:35 Attending Provider: Pankaj Johnson Admit Provider: Gopal Qureshi Primary Care Provider: Deangelo Bashir Other Providers: Gopal Qureshi ; Presley Butterfield ; Marilin Martinez Other Interventions: Discharge Summary Assessment (RN) Last Done: 10/24/21 11:39
[2021-10-24] MEDS ORDERED: AMIODARONE 200 MG TAB PO SCH (17:00)
[2021-10-25] MEDS ORDERED: FUROSEMIDE 40 MG TAB PO SCH (09:00)
--- NOTE | 2021-10-26 09:14 | Electrocardiogram Report ---
Test Reason : Blood Pressure : / mmHG Vent. Rate : 078 BPM Atrial Rate : 078 BPM P-R Int : 192 ms QRS Dur : 138 ms QT Int : 440 ms P-R-T Axes : 034 042 210 degrees QTc Int : 501 ms Normal sinus rhythm with Atrial triplet Non-specific intra-ventricular conduction block Minimal voltage criteria for LVH, may be normal variant Abnormal ECG When compared with ECG of 22-OCT-2021 05:21, Atrial triplet is now present Sinus rhythm has replaced Atrial flutter Premature ventricular complexes are no longer Present Confirmed by Alejandro Holt ([id number]) on 10/26/2021 9:13:58 AM Referred By: REFERRED SELF Confirmed By:Alejandro Holt
== END 2021-10-24 13:00 | disposition home or self-care (01) | DRG 308 ==
LOC: ED 16:15 → 2S 20:35